=== PATIENT | male | born 1970 | race Caucasian/White ===

== ENCOUNTER 2016-03-07 14:52 | Emergency (ER) | payer SELFPAY ==
[~2016-03-07] VITALS: Ht 167.6 cm; Wt 112.0 kg
[2016-03-07 14:55] VITALS: BP 148/107; PULSE 79; RESP 16; TEMP 98.3; O2SAT 98
--- NOTE | 2016-03-07 15:23 | PD ---
HPI Chief Complaint: GI Complaint Time Seen by Provider: 15:08 Travel History International Travel<30 days: No Contact w/Intl Traveler<30days: No Traveled to known affect area: No History of Present Illness HPI 45 years old male complains of low abdominal pain with nausea vomiting diarrhea. Patient states that symptoms started 3 days ago. Patient states the pain is sharp pain localized to lower abdomen. Patient denies any pain radiation. Patient states that pain has been constant for the past 3 days. Patient states that he has intermittent fever or sweats chills. Patient also has been congested and wheezing recently. Patient denies any history of COPD or asthma. Patient has been using albuterol inhaler as needed. Patient is a nonsmoker. Patient has history of irritable bowel syndrome. Patient has taken Prilosec [id number] as needed. PFSH Past Medical History Cardiovascular Problems: Yes (HTN) Diabetes: Yes (METFORMIN) Social History Tobacco Use: No Allergies-Medications (Allergen,Severity, Reaction): Coded Allergies: No Known Allergies (Unverified , 03/07/16) Reported Meds & Prescriptions Reported Meds & Active Scripts Active Zofran Odt (Ondansetron Odt) 4 Mg Tab 4 Mg SL Q6HR PRN Bentyl (Dicyclomine HCl) 20 Mg Tab 20 Mg PO TID Protonix (Pantoprazole Sodium) 20 Mg Tab 20 Mg PO DAILY Levaquin (Levofloxacin) 750 Mg Tab 750 Mg PO DAILY Reported Clonidine (Clonidine HCl) 0.3 Mg Tab 0.3 Mg PO TID Losartan (Losartan Potassium) 100 Mg Tab 100 Mg PO DAILY Amlodipine (Amlodipine Besylate) 2.5 Mg Tab Unknown Dose PO DAILY Atenolol 100 Mg Tab 100 Mg PO BID Review of Systems General / Constitutional: No: Fever Eyes: No: Visual changes HENT: Positive: Congestion, No: Headaches Cardiovascular: No: Chest Pain or Discomfort Respiratory: Positive: Wheezing, No: Shortness of Breath Gastrointestinal: Positive: Nausea, Vomiting, Diarrhea, Abdominal Pain Genitourinary: No: Dysuria Musculoskeletal: No: Pain Skin: No Rash Neurologic: No: Weakness Psychiatric: No: Depression Endocrine: No: Polydipsia Hematologic/Lymphatic: No: Easy Bruising Physical Exam Narrative GENERAL: Well-nourished, well-developed patient. SKIN: Warm and dry. HEAD: Normocephalic. EYES: No scleral icterus. No injection or drainage. NECK: Supple, trachea midline. No JVD or lymphadenopathy. CARDIOVASCULAR: Regular rate and rhythm without murmurs, gallops, or rubs. RESPIRATORY: Breath sounds equal bilaterally. No accessory muscle use. GASTROINTESTINAL: Abdomen soft, nondistended. Patient has mild tenderness on palpation lower abdomen. No rebound tenderness. No mass. MUSCULOSKELETAL: No cyanosis, or edema. BACK: Nontender without obvious deformity. No CVA tenderness. Neurologic exam normal. Data Data Last Documented VS Vital Signs Date Time Temp Pulse Resp B/P Pulse Ox O2 Delivery O2 Flow Rate FiO2 03/07/16 17:47 76 16 157/75 98 Room Air 03/07/16 14:55 98.3 Orders Electrocardiogram (03/07/16 15:16) Complete Blood Count With Diff (03/07/16 15:16) Comprehensive Metabolic Panel (03/07/16 15:16) Prothrombin Time / Inr (Pt) (03/07/16 15:16) Act Partial Throm Time (Ptt) (03/07/16 15:16) Lipase (03/07/16 15:16) Urinalysis - C+S If Indicated (03/07/16 15:16) Chest, Single Ap (03/07/16 15:16) Iv Access Insert/Monitor (03/07/16 15:16) Ecg Monitoring (03/07/16 15:16) Oximetry (03/07/16 15:16) Sodium Chlor 0.9% 1000 Ml Inj (Ns 1000 M (03/07/16 15:30) Pantoprazole Inj (Protonix Inj) (03/07/16 15:30) Ondansetron Inj (Zofran Inj) (03/07/16 15:30) Ct Abd/Pel W Iv Contrast(Rout) (03/07/16 15:20) Iohexol 350 Inj (Omnipaque 350 Inj) (03/07/16 17:08) Ceftriaxone Inj (Rocephin Inj) (03/07/16 17:45) Labs Laboratory Tests Test 03/07/16 03/07/16 15:50 17:39 White Blood Count 5.4 TH/MM3 Red Blood Count 4.75 MIL/MM3 Hemoglobin 14.6 GM/DL Hematocrit 42.3 % Mean Corpuscular Volume 89.2 FL Mean Corpuscular Hemoglobin 30.6 PG Mean Corpuscular Hemoglobin 34.4 % Concent Red Cell Distribution Width 12.2 % Platelet Count 259 TH/MM3 Mean Platelet Volume 7.7 FL Neutrophils (%) (Auto) 57.1 % Lymphocytes (%) (Auto) 23.9 % Monocytes (%) (Auto) 14.0 % Eosinophils (%) (Auto) 4.0 % Basophils (%) (Auto) 1.0 % Neutrophils # (Auto) 3.0 TH/MM3 Lymphocytes # (Auto) 1.3 TH/MM3 Monocytes # (Auto) 0.8 TH/MM3 Eosinophils # (Auto) 0.2 TH/MM3 Basophils # (Auto) 0.1 TH/MM3 CBC Comment DIFF FINAL Differential Comment Prothrombin Time 10.2 SEC Prothromb Time International 0.9 RATIO Ratio Activated Partial 27.7 SEC Thromboplast Time Sodium Level 141 MEQ/L Potassium Level 3.8 MEQ/L Chloride Level 106 MEQ/L Carbon Dioxide Level 25.6 MEQ/L Anion Gap 9 MEQ/L Blood Urea Nitrogen 11 MG/DL Creatinine 1.20 MG/DL Estimat Glomerular Filtration 65 ML/MIN Rate Random Glucose 116 MG/DL Calcium Level 8.3 MG/DL Total Bilirubin 0.3 MG/DL Aspartate Amino Transf 41 U/L (AST/SGOT) Alanine Aminotransferase 66 U/L (ALT/SGPT) Alkaline Phosphatase 54 U/L Total Protein 7.7 GM/DL Albumin 3.8 GM/DL Lipase 233 U/L Urine Collection Type VOIDED Urine Color YELLOW Urine Turbidity CLEAR Urine pH 6.0 Urine Specific [place] 1.030 Urine Protein NEG mg/dL Urine Glucose (UA) NEG mg/dL Urine Ketones NEG mg/dL Urine Occult Blood SMALL Urine Nitrite NEG Urine Bilirubin NEG Urine Leukocyte Esterase NEG Urine RBC 0-3 /hpf Urine WBC 0-2 /hpf Microscopic Urinalysis Comment CULT NOT INDICATED Urine Collection Time 1739 MDM Medical Decision Making Medical Screen Exam Complete: Yes Emergency Medical Condition: Yes Interpretation(s) Last Impressions Chest X-Ray 03/07/16 1516 Signed Impressions: Service Date/Time: February 15:36 - CONCLUSION: Possible focal consolidation in the medial right upper lung zone/right suprahilar region. The appearance is nonspecific. If there are clinically signs of infection this could represent an infectious process. Consider followup PA and lateral views of the chest to confirm resolution. Justice Muro MD 1626 PM. CBC within normal limit. CMP within normal limit. Differential Diagnosis Differential diagnosis including gastroenteritis, gastritis, PUD, pancreatitis, cholecystitis, colitis, UTI, pyelonephritis, URI, bronchitis, pneumonia. Narrative Course 45 years old male complains of low abdominal pain with nausea vomiting diarrhea and congestion and wheezing. Rocephin 1 g IV given now. Diagnosis Primary Impression: Pneumonia Qualified Code: J18.9 - Pneumonia of both lungs due to infectious organism, unspecified part of lung Additional Impression: Gastroenteritis Patient Instructions: General Instructions Additional Instructions: Take medications as directed. Tylenol for fever. Follow-up with personal physician. Return if persistent problem or worse. Med/Other Pt SpecificInfo: Prescription(s) given Scripts Ondansetron Odt (Zofran Odt)4 Mg Tab4 Mg SL Q6HR PRN (Nausea/Vomiting) #10 TAB Prov:Hunter Parsons MD 03/07/16 Dicyclomine (Bentyl)20 Mg Tab20 Mg PO TID #30 TAB Ref 0 Prov:Hunter Parsons MD 03/07/16 Pantoprazole (Protonix)20 Mg Tab20 Mg PO DAILY #30 TAB Ref 0 Prov:Hunter Parsons MD 03/07/16 Levofloxacin (Levaquin)750 Mg Hbr138 Mg PO DAILY #10 TAB Ref 0 Prov:Hunter Parsons MD 03/07/16 Disposition: 01 DISCHARGE HOME Condition: Stable Hunter Parsons MD Mar 07, 2016 15:23
[2016-03-07 15:29] VITALS: RESP 18; O2SAT 98
[2016-03-07] MEDS ORDERED: ONDANSETRON HCL 4 MG/2 ML VIAL IV PUSH ONE (15:30)
[2016-03-07] MEDS ORDERED: SODIUM CHLOR 0.9% 1000 ML INJ 1,000 ML IV SCH (15:30)
[2016-03-07] MEDS ORDERED: PANTOPRAZOLE SODIUM 40 MG VIAL IV PUSH ONE (15:30)
[2016-03-07] MEDS ORDERED: ATEN100T PO (15:31)
[2016-03-07] MEDS ORDERED: LOSA100T PO (15:32)
[2016-03-07] MEDS ORDERED: AMLO2.5T PO (15:32)
[2016-03-07] MEDS ORDERED: CLON0.3T PO (15:33)
[2016-03-07 15:59] LABS: BASOPHIL # 0.1 TH/MM3 (0-0.2); EOSINOPHIL # 0.2 TH/MM3 (0-0.4); HEMATOCRIT 42.3 % (39.0-51.0); HEMO FLAGS DIFF FINAL; LYMPH % 23.9 % (9.0-44.0); LYMPHOCYTE # 1.3 TH/MM3 (1.0-4.8); MEAN CELL VOLUME 89.2 FL (80.0-100.0); MEAN CORPUSCULAR HEMOGLOBIN 30.6 PG (27.0-34.0); MEAN CORPUSCULAR HGB CONC 34.4 % (32.0-36.0); NEUT % 57.1 % (16.0-70.0); PLATELET COUNT 259 TH/MM3 (150-450); RED BLOOD COUNT 4.75 MIL/MM3 (4.50-5.90); RED CELL DISTRIBUTION WIDTH 12.2 % (11.6-17.2); WHITE BLOOD COUNT 5.4 TH/MM3 (4.0-11.0)
[2016-03-07 16:07] LABS: CHLORIDE 106 MEQ/L (98-107); POTASSIUM 3.8 MEQ/L (3.5-5.1); SODIUM (NA) 141 MEQ/L (136-145)
--- NOTE | 2016-03-07 16:09 | RADHPO ---
EXAM DATE/TIME: 03/07/2016 15:36 [facility] COMPARISON: No previous studies available for comparison. INDICATIONS : Patient states shortness of breath. MEDICAL HISTORY : Hypertension. Diabetes mellitus type II. Smoker SURGICAL HISTORY : None. ENCOUNTER: Initial ACUITY: 2 days PAIN SCORE: 1/10 LOCATION: Bilateral chest FINDINGS: Portable AP view of the chest demonstrates a normal-sized cardiac silhouette. Lungs are underinflated . No effusion or pneumothorax is visualized. There is questionable focal airspace opacity in the righ t suprahilar region in the medial right upper lung zone. Bones and soft tissues demonstrate no acute finding. CONCLUSION: Possible focal consolidation in the medial right upper lung zone/right suprahilar region. The appeara nce is nonspecific. If there are clinically signs of infection this could represent an infectious pro cess. Consider followup PA and lateral views of the chest to confirm resolution. Justice Muro MD on March 07, 2016 at 16:02 Board Certified Radiologist. This report was verified electronically.
[2016-03-07 16:11] LABS: ANION GAP 9 MEQ/L (5-15); BICARBONATE 25.6 MEQ/L (21.0-32.0); BLOOD UREA NITROGEN 11 MG/DL (7-18)
[2016-03-07 16:12] LABS: APTT (PATIENT) 27.7 SEC (24.3-30.1); INTERNATIONAL NORMALIZED RATIO 0.9 RATIO; PROTHROMBIN TIME - PATIENT 10.2 SEC (9.8-11.6)
[2016-03-07 16:13] LABS: ALT (GPT) 66 U/L (12-78); AST (GOT) 41 U/L (15-37); GLOMERULAR FILTRATION RATE 65 ML/MIN (>89)
[2016-03-07 16:15] LABS: TOTAL BILIRUBIN ADULT 0.3 MG/DL (0.2-1.0)
[2016-03-07 16:16] LABS: ALKALINE PHOSPHATASE 54 U/L (45-117)
[2016-03-07 16:46] VITALS: BP 152/99; PULSE 78; RESP 16; O2SAT 97
[2016-03-07] MEDS ORDERED: IOHEXOL 350 MG/ML 10 ML VIAL (for RAD DIAG) IV ONE (17:08)
--- NOTE | 2016-03-07 17:28 | RADHPO ---
EXAM DATE/TIME: 03/07/2016 16:50 [facility] COMPARISON: No previous studies available for comparison. INDICATIONS : Lower abdominal pain. Nausea. Vomiting. Diarrhea. IV CONTRAST: 100 cc Omnipaque 350 (iohexol) IV ORAL CONTRAST: No oral contrast ingested. RADIATION DOSE: 21.66 CTDIvol (mGy) MEDICAL HISTORY : Hypertension. Diabetes mellitus type 2. SURGICAL HISTORY : None. ENCOUNTER: Initial ACUITY: 3 days PAIN SCALE: 5/10 LOCATION: Bilateral lower quadrant TECHNIQUE: Volumetric scanning of the abdomen and pelvis was performed. Using automated exposure control and adjustment of the mA and/or kV according to patient size, radiation dose was kept as low as reasonably achievable to obtain optimal diagnostic quality images. FINDINGS: LOWER LUNGS: There is left lower lobe airspace consolidation present and to a lesser extent withi n the right lower lobe. This may represent pneumonia. LIVER: Homogeneous density without lesion. Diffuse low-attenuation consistent with hepatic steat osis. There is no dilation of the biliary tree. No calcified gallstones. SPLEEN: Normal size without lesion. PANCREAS: Within normal limits. KIDNEYS: Normal in size and shape. There is no mass, stone or hydronephrosis. ADRENAL GLANDS: Within normal limits. VASCULAR: There is no aortic aneurysm. BOWEL/MESENTERY: The stomach, small bowel, and colon demonstrate no acute abnormality. There is no free intraperitoneal air or fluid. ABDOMINAL WALL: Within normal limits. RETROPERITONEUM: There is no lymphadenopathy. BLADDER: No wall thickening or mass. REPRODUCTIVE: Within normal limits. INGUINAL: There is no lymphadenopathy or hernia. MUSCULOSKELETAL: Within normal limits for patient age. CONCLUSION: Bilateral perihilar airspace consolidation. This likely represents pneumonia. Hepatic steatosis. Linh Thorpe MD on March 07, 2016 at 17:25 Board Certified Radiologist. This report was verified electronically.
[2016-03-07] MEDS ORDERED: LEVA750T PO (17:35)
[2016-03-07] MEDS ORDERED: ZOFR4TAB3 SL (17:35)
[2016-03-07] MEDS ORDERED: PANT20 PO (17:35)
[2016-03-07] MEDS ORDERED: BENT20TA PO (17:35)
[2016-03-07] MEDS ORDERED: cefTRIAXone INJ 1,000 MG in SODIUM CHLORIDE 0.9% INJ 100 ML IV ONE (17:45)
[2016-03-07 17:47] VITALS: BP 157/75; PULSE 76; RESP 16; O2SAT 98
[2016-03-07 17:50] LABS: BLOOD, URINE SMALL (NEG); GLUCOSE,URINE NEG (NEG); KETONE, URINE NEG (NEG); NITRITE,URINE NEG (NEG)
[2016-03-07 18:15] LABS: METHOD OF COLLECTION VOIDED; URINE COLOR YELLOW (YELLW/STRAW)
[2016-03-07 18:22] LABS: COMMENT (UR) CULT NOT INDICATED; CULTURE IF INDICATED CULT NOT INDICATED; RBC, URINE 0-3 /hpf (0-3); WBC, URINE 0-2 /hpf (0-5)
[2016-03-07 19:42] VITALS: BP 165/100
--- NOTE | 2016-03-08 16:39 | EKG ---
Date Performed: 03/07/2016 Time Performed: 15:25:56 PTAGE: 45 years EKG: Sinus rhythm rSr'(V1) - probable normal variant Normal ECG NO PREVIOUS TRACING DOCTOR: John Kimbrough Interpretating Date/Time 03/08/2016 16:38:16
== END 2016-03-07 19:44 | disposition home or self-care (01) ==
LOC: PHED 14:52
DX: J18.9 Pneumonia, unspecified organism (principal); I10 Essential (primary) hypertension; E11.9 Type 2 diabetes mellitus without complications; Z79.4 Long term (current) use of insulin
CPT/HCPCS: 71010; 74177; 80053; 81001; 83690; 85025; 85610; 85730; 93005; 96361; 96365; 96375; 99285; C9113; J0696; J2405; J7030; Q9967

== ENCOUNTER 2016-08-06 12:04 | Inpatient (IN) | payer OTHER ==
[~2016-08-06] VITALS: Ht 167.6 cm; Wt 103.0 kg
[2016-08-06] VITALS (10 sets, daily range): BP systolic 132–192; BP diastolic 3–121; PULSE 3–72; RESP 15–20; TEMP 97.4–98.6; O2SAT 96–99
[~2016-08-06 12:04] MED LIST: AMLO2.5T PO; ATEN100T PO; BENT20TA PO; CLON0.3T PO; LEVA750T PO; LOSA100T PO; PANT20 PO; ZOFR4TAB3 SL
[2016-08-06] MEDS ORDERED: PRIL20TA2 PO (12:28)
[2016-08-06] MEDS ORDERED: NITROGLYCERIN 0.4 MG SL 25 TABS/BTL SL ONE (12:30)
[2016-08-06] MEDS ORDERED: SODIUM CHLORIDE 0.9% FLUSH 10 ML FLUSH IVF PRN (12:30)
[2016-08-06 13:02] LABS: AUTOMATED NEUTROPHIL # 4.7 TH/MM3 (1.8-7.7); BASOPHIL # 0.2 TH/MM3 (0-0.2); BASOPHIL % 1.9 % (0.0-2.0); EOSINOPHIL # 0.2 TH/MM3 (0-0.4); EOSINOPHIL % 2.2 % (0.0-4.0); HEMATOCRIT 42.2 % (39.0-51.0); HEMO FLAGS DIFF FINAL; LYMPH % 30.6 % (9.0-44.0); LYMPHOCYTE # 2.5 TH/MM3 (1.0-4.8); MEAN CELL VOLUME 87.1 FL (80.0-100.0); MEAN CORPUSCULAR HGB CONC 34.5 % (32.0-36.0); NEUT % 58.3 % (16.0-70.0); PLATELET COUNT 268 TH/MM3 (150-450); RED BLOOD COUNT 4.85 MIL/MM3 (4.50-5.90); RED CELL DISTRIBUTION WIDTH 12.3 % (11.6-17.2); WHITE BLOOD COUNT 8.2 TH/MM3 (4.0-11.0)
--- NOTE | 2016-08-06 13:10 | RADRPT ---
EXAM DATE/TIME: 08/06/2016 12:33 [facility] COMPARISON: No previous studies available for comparison. INDICATIONS : High blood pressure. MEDICAL HISTORY : Hypertension. Diabetes mellitus type II. Smoker. SURGICAL HISTORY : None. ENCOUNTER: Initial ACUITY: 1 day PAIN SCORE: 0/10 LOCATION: chest FINDINGS: PA and lateral views of the chest demonstrate the lungs to be symmetrically aerated without evidence of mass, infiltrate or effusion. The cardiomediastinal contours are unremarkable. Osseous structure s are intact. CONCLUSION: No acute disease. Magdaleno Nolasco MD on August 06, 2016 at 13:03 Board Certified Radiologist. This report was verified electronically.
[2016-08-06 13:14] LABS: CHLORIDE 106 MEQ/L (98-107); POTASSIUM 3.9 MEQ/L (3.5-5.1); SODIUM (NA) 142 MEQ/L (136-145)
[2016-08-06 13:18] LABS: ANION GAP 6 MEQ/L (5-15); BICARBONATE 29.9 MEQ/L (21.0-32.0); BLOOD UREA NITROGEN 13 MG/DL (7-18)
[2016-08-06 13:19] LABS: APTT (PATIENT) 21.2 SEC (24.3-30.1); INTERNATIONAL NORMALIZED RATIO 0.9 RATIO; PROTHROMBIN TIME - PATIENT 9.9 SEC (9.8-11.6)
[2016-08-06 13:21] LABS: ALT (GPT) 38 U/L (12-78); AST (GOT) 22 U/L (15-37); GLOMERULAR FILTRATION RATE 72 ML/MIN (>89)
[2016-08-06 13:23] LABS: TOTAL BILIRUBIN ADULT 0.3 MG/DL (0.2-1.0)
[2016-08-06 13:24] LABS: ALKALINE PHOSPHATASE 55 U/L (45-117)
[2016-08-06] MEDS ORDERED: ASPIRIN 81 MG CHEW TAB CHEW ONE (14:15)
--- NOTE | 2016-08-06 14:25 | PD ---
HPI Chief Complaint: Hypertension Time Seen by Provider: 12:21 Travel History International Travel<30 days: No Contact w/Intl Traveler<30days: No Traveled to known affect area: No History of Present Illness HPI Patient is a 45-year-old male comes in complaining of high blood pressure and chest tightness. He says that he has noticed his blood pressure has been elevated, especially in the afternoon for the past few days. He says the bottom number is been in the 120s. He does report he was out of his amlodipine , but he picked it up yesterday and has been taking it since then. He says that yesterday he had some chest tightness, and today he had pain in his chest again. He says the pain goes across his chest. She also had occasional headaches and blurred vision. The blurred vision has been going on for months, and is mostly related to trying to read. He has gotten reading glasses, and this is resolved the symptoms. He denies any shortness of breath. He denies any fever or chills. [facility] Past Medical History Cardiovascular Problems: Yes (HTN) Diabetes: Yes (METFORMIN) Patient Takes Glucophage: No Diminished Hearing: No Influenza Vaccination: Yes Social History Alcohol Use: No Tobacco Use: No Substance Use: Yes ([facility] occas) Allergies-Medications (Allergen,Severity, Reaction): Coded Allergies: No Known Allergies (Unverified , 08/06/16) Reported Meds & Prescriptions Reported Meds & Active Scripts Active Protonix (Pantoprazole Sodium) 20 Mg Tab 20 Mg PO DAILY Reported Prilosec (Omeprazole Magnesium) 20 Mg Tab 1 Tab PO DAILY Clonidine (Clonidine HCl) 0.3 Mg Tab 0.3 Mg PO TID Losartan (Losartan Potassium) 100 Mg Tab 100 Mg PO DAILY Amlodipine (Amlodipine Besylate) 2.5 Mg Tab Unknown Dose PO DAILY Atenolol 100 Mg Tab 100 Mg PO BID Review of Systems Except as stated in HPI: all other systems reviewed are Neg General / Constitutional: No: Fever, Chills HENT: No: Headaches, Lightheadedness Cardiovascular: Positive: Chest Pain or Discomfort Respiratory: No: Cough, Shortness of Breath Gastrointestinal: No: Nausea, Vomiting Genitourinary: No: Dysuria Musculoskeletal: No: Myalgias Skin: No Rash, No Change in Pigmentation Neurologic: No: Weakness, Dizziness Physical Exam Narrative GENERAL: Awake and alert, in no acute distress. SKIN: Focused skin assessment warm/dry. HEAD: Atraumatic. Normocephalic. EYES: Pupils equal and round. No scleral icterus. ENT: Mucous membranes pink and moist. NECK: Trachea midline. No JVD. CARDIOVASCULAR: Regular rate and rhythm. No murmur appreciated. RESPIRATORY: No accessory muscle use. Clear to auscultation. Breath sounds equal bilaterally. MUSCULOSKELETAL: No obvious deformities. No clubbing. No cyanosis. No edema. NEUROLOGICAL: Awake and alert. No obvious cranial nerve deficits. Motor grossly within normal limits. Normal speech. PSYCHIATRIC: Appropriate mood and affect; insight and judgment normal. Data Data Last Documented VS Vital Signs Date Time Temp Pulse Resp B/P Pulse Ox O2 Delivery O2 Flow Rate FiO2 08/06/16 14:01 72 18 149/85 99 Room Air 08/06/16 12:11 98.6 Orders Electrocardiogram (08/06/16 12:28) Complete Blood Count With Diff (08/06/16 12:28) Comprehensive Metabolic Panel (08/06/16 12:28) Prothrombin Time / Inr (Pt) (08/06/16 12:28) Act Partial Throm Time (Ptt) (08/06/16 12:28) Troponin I (08/06/16 12:28) Ecg Monitoring (08/06/16 12:28) Iv Access Insert/Monitor (08/06/16 12:28) Oximetry (08/06/16 12:28) Sodium Chloride 0.9% Flush (Ns Flush) (08/06/16 12:30) Nitroglycerin Sl (Nitrostat Sl) (08/06/16 12:30) Chest, Pa & Lat (08/06/16 12:28) Aspirin Chew (Aspirin Chew) (08/06/16 14:15) Labs Laboratory Tests Test 08/06/16 12:55 White Blood Count 8.2 TH/MM3 Red Blood Count 4.85 MIL/MM3 Hemoglobin 14.6 GM/DL Hematocrit 42.2 % Mean Corpuscular Volume 87.1 FL Mean Corpuscular Hemoglobin 30.0 PG Mean Corpuscular Hemoglobin 34.5 % Concent Red Cell Distribution Width 12.3 % Platelet Count 268 TH/MM3 Mean Platelet Volume 8.0 FL Neutrophils (%) (Auto) 58.3 % Lymphocytes (%) (Auto) 30.6 % Monocytes (%) (Auto) 7.0 % Eosinophils (%) (Auto) 2.2 % Basophils (%) (Auto) 1.9 % Neutrophils # (Auto) 4.7 TH/MM3 Lymphocytes # (Auto) 2.5 TH/MM3 Monocytes # (Auto) 0.6 TH/MM3 Eosinophils # (Auto) 0.2 TH/MM3 Basophils # (Auto) 0.2 TH/MM3 CBC Comment DIFF FINAL Differential Comment Prothrombin Time 9.9 SEC Prothromb Time International 0.9 RATIO Ratio Activated Partial 21.2 SEC Thromboplast Time Sodium Level 142 MEQ/L Potassium Level 3.9 MEQ/L Chloride Level 106 MEQ/L Carbon Dioxide Level 29.9 MEQ/L Anion Gap 6 MEQ/L Blood Urea Nitrogen 13 MG/DL Creatinine 1.10 MG/DL Estimat Glomerular Filtration 72 ML/MIN Rate Random Glucose 92 MG/DL Calcium Level 8.6 MG/DL Total Bilirubin 0.3 MG/DL Aspartate Amino Transf 22 U/L (AST/SGOT) Alanine Aminotransferase 38 U/L (ALT/SGPT) Alkaline Phosphatase 55 U/L Troponin I LESS THAN 0.02 NG/ML Total Protein 7.6 GM/DL Albumin 4.0 GM/DL MDM Medical Decision Making Medical Screen Exam Complete: Yes Emergency Medical Condition: Yes Medical Record Reviewed: Yes Interpretation(s) ECG shows normal sinus rhythm at 65, incomplete right bundle-branch block, no ST elevation or depression. Differential Diagnosis ACS versus NSTEMI versus STEMI versus hypertensive urgency versus hypertensive emergency Narrative Course Patient is a 45-year-old male comes in complaining of high blood pressure and chest pain. Exam shows no acute abnormalities. Blood pressure is currently 156 /98. IV established, labs sent. Patient connected to the monitoring and evaluation advisor. Labs show no acute abnormalities, first troponin is negative. Patient was given 1 nitroglycerin with some improvement of his blood pressure, but it caused a headache. He is currently pain-free in his chest. He is given aspirin. Will be placed in chest pain center for further management. Diagnosis Primary Impression: Chest pain Qualified Code: R07.9 - Chest pain, unspecified type Admitting Information Admitting Physician Requests: Emy Adam MD Aug 06, 2016 14:25
[2016-08-06] MEDS ORDERED: SODIUM CHLORIDE 0.9% FLUSH 10 ML FLUSH IV FLUSH PRN (14:30)
[2016-08-06] MEDS ORDERED: MORPHINE SULFATE 4 MG/ML INJ IV PRN (14:30)
[2016-08-06] MEDS ORDERED: ONDANSETRON HCL 4 MG/2 ML VIAL IV PRN (14:30)
[2016-08-06] MEDS ORDERED: NITROGLYCERIN 0.4 MG SL 25 TABS/BTL SL PRN (14:30)
--- NOTE | 2016-08-06 16:25 | HHI.HP ---
[facility] Service [facility] Non-Staff Admission Diagnosis Chest Pain Diagnoses: (1) Chest pain Diagnosis: Principal (2) Dyspnea Diagnosis: Principal (3) HTN (hypertension) Diagnosis: Principal Chief Complaint: elevated BP, chest pain, shortness of breath Travel History International Travel<30 Days: No Contact w/Intl Traveler <30 Da: No Traveled to Known Affected Are: No History of Present Illness Written by Jossy Jain PA-C acting as scribe for Dr. Fagan on 08/06/16 at ~1615. 45-year-old male with history of diabetes, hypertension, anxiety, h/o tobacco use presents with complaint of elevated blood pressure and chest pain. Patient's and mother at bedside. His also states he has been short of breath. Patient states he is four different blood pressure medications and he ran out of his amlodipine 7-8 days ago. He states he was trying to take cinnamon supplement instead to try to get off taking so many medications. 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 He states his diastolic blood pressure has been elevated over 100. He states his blood pressure was 178/122 this morning and he took his morning meds and he went to work and rechecked his blood pressure and his diastolic blood pressure was still above 100 so he decided to come to the ED. He states he felt a "stitch" of pain in the left breast which has been constant over the past 48 hours but it does not really concern him. His states he has also been short of breath for the past 2 weeks on exertion and at rest. The patient does smoke marijuana for anxiety relief. Denies any cough. He also states he has IBS and has had 4-6 bowel movements per day. She is primary-care physician is Dr. Kt Islas, but he is self-pay. Review of Systems Except as stated in HPI: all other systems reviewed are Neg Past Family Social History Past Medical History Hypertension Diabetes Anxiety Past Surgical History Carpal tunnel surgery Reported Medications Medications verified with patient's . Prilosec (Omeprazole Magnesium) 20 Mg Tab 1 Tab PO DAILY Clonidine 0.3 mg po tid Losartan (Losartan Potassium) 100 Mg Tab 100 Mg PO DAILY Amlodipine 5 mg po daily Atenolol 50 Mg PO BID Metformin 1000 mg po bid Allergies: Coded Allergies: No Known Allergies (Unverified , 08/06/16) Family History Father: CAD; stents; quadruple bypass in his 60s; DM Mother: HTN Social History . Drinks a bottle of whiskey per month. Quit smoking cigarettes 10 years ago. Prior to this smoked one pack per day for 20 years. Uses marijuana. Physical Exam Vital Signs Vital Signs Date Time Temp Pulse Resp B/P Pulse Ox O2 Delivery O2 Flow Rate FiO2 08/06/16 15:15 68 18 162/100 99 08/06/16 14:01 72 18 149/85 99 Room Air 08/06/16 13:53 77 08/06/16 13:08 18 08/06/16 13:04 68 18 132/76 96 Room Air 08/06/16 12:40 66 15 156/98 98 Room Air 08/06/16 12:11 98.6 68 16 157/108 96 Physical Exam GENERAL: This is an obese, well-developed patient, in no apparent distress. SKIN: No rashes, ecchymoses or lesions. Warm and dry. HEAD: Atraumatic. Normocephalic. EYES: No scleral icterus. No injection or drainage. CHEST: Very mild reproducible tenderness under the left breast CARDIOVASCULAR: Regular rate and rhythm without murmurs, gallops, or rubs. RESPIRATORY: Diffuse decreased air entry and expiratory wheezing. GASTROINTESTINAL: Abdomen soft, non-tender, nondistended. No guarding. MUSCULOSKELETAL: No lower extremity edema bilaterally. NEUROLOGICAL: Awake and alert. Motor grossly within normal limits. Normal speech. PSYCHIATRIC: Normal mood and affect. Laboratory Laboratory Tests Test 08/06/16 12:55 White Blood Count 8.2 Red Blood Count 4.85 Hemoglobin 14.6 Hematocrit 42.2 Mean Corpuscular Volume 87.1 Mean Corpuscular Hemoglobin 30.0 Mean Corpuscular Hemoglobin 34.5 Concent Red Cell Distribution Width 12.3 Platelet Count 268 Mean Platelet Volume 8.0 Neutrophils (%) (Auto) 58.3 Lymphocytes (%) (Auto) 30.6 Monocytes (%) (Auto) 7.0 Eosinophils (%) (Auto) 2.2 Basophils (%) (Auto) 1.9 Neutrophils # (Auto) 4.7 Lymphocytes # (Auto) 2.5 Monocytes # (Auto) 0.6 Eosinophils # (Auto) 0.2 Basophils # (Auto) 0.2 CBC Comment DIFF FINAL Differential Comment Prothrombin Time 9.9 Prothromb Time International 0.9 Ratio Activated Partial 21.2 Thromboplast Time Sodium Level 142 Potassium Level 3.9 Chloride Level 106 Carbon Dioxide Level 29.9 Anion Gap 6 Blood Urea Nitrogen 13 Creatinine 1.10 Estimat Glomerular Filtration 72 Rate Random Glucose 92 Calcium Level 8.6 Total Bilirubin 0.3 Aspartate Amino Transf 22 (AST/SGOT) Alanine Aminotransferase 38 (ALT/SGPT) Alkaline Phosphatase 55 Troponin I LESS THAN 0.02 Total Protein 7.6 Albumin 4.0 Result Diagram: 08/06/16 1255 08/06/16 1255 Imaging Last Impressions Chest X-Ray 08/06/16 1228 Signed Impressions: Service Date/Time: Saturday, August 06, 2016 12:33 - CONCLUSION: No acute disease. Magdaleno Nolasco MD Assessment and Plan Assessment and Plan 45-year-old male with: Hypertension, uncontrolled: Patient is on clonidine, valsartan, amlodipine, and atenolol at home. He had not been taking his 5mg daily amlodipine for the past 7-8 days, restarted it recently. His diastolic blood pressure has been elevated at home. BP 157/108 on arrival. -Discontinue scheduled clonidine. Will keep clonidine as needed 0.1 mg q6h prn BP >/= 160/90. -Discontinue amlodipine -Continue losartan. -Hold atenolol for now in light of stress test. Chest pain: Mild but constant over the past 48 hours. Could be attributed to elevated blood pressure. EKGs 2 with normal sinus rhythm; incomplete right bundle-branch block. There appears to be some T-wave flipping, inversion on the second EKG in V5 and V6. First Troponin less than 0.02. Patient received 324 mg aspirin this afternoon. -Serial EKGs and enzymes -Continue daily aspirin -Nitroglycerin/[place]/morphine prn chest pain -Telemetry -Patient will undergo nuclear stress test in the morning provided he has no significant wheezing. Nothing by mouth after midnight. Dyspnea: Patient's states he has been short of breath for the past 2 weeks at rest and on exertion. The patient does have wheezing on exam. He does smoke marijuana and has a history of tobacco use although quit 10 years ago. Chest x-ray without acute disease. -PFTs -Echo -Solu-Medrol 125 mg IV now; then start on by mouth prednisone Diabetes: Blood glucose level good at 92. -Hold home metformin -Bedside Accu-Cheks and low dose sliding scale insulin as needed. Do not cover if nothing by mouth and BGL less than 200. GI prophylaxis: Continue home Protonix. DVT prevention: SCDs. This note was transcribed by rani Jain. I, Dr. Terry Guardado personally performed the history, physical exam, and medical decision making; and confirmed the accuracy of the information in the transcribed note. Authenticated by Dr. Terry Guardado on 08/06/16 at 18:37. Discussed Condition With ED physician, patient Problem Qualifiers (1) Chest pain: Qualified Code: R07.9 - Chest pain, unspecified type (2) HTN (hypertension): Qualified Code: I10 - Essential hypertension Jossy Jain Aug 06, 2016 16:25 Terry Oreilly MD Aug 06, 2016 18:37
[2016-08-06] MEDS ORDERED: methylPREDNISolone SOD SUCC 125 MG/2 ML VIAL IV PUSH ONE (16:30)
[2016-08-06] MEDS: PANTOPRAZOLE SOD 20 MG DELAYED RELEASE TAB PO SCH (16:48)
[2016-08-06] MEDS: LOSARTAN 50 MG TAB PO SCH (16:48)
[2016-08-06 16:59] LABS: CREATINE KINASE 134 U/L (39-308)
[2016-08-06] MEDS ORDERED: ALPR.5 PO (16:59)
[2016-08-06] MEDS ORDERED: GLUCAGON 1 MG/ML VIAL OTHER PRN (17:00)
[2016-08-06] MEDS ORDERED: DEXTROSE 50% IN WATER 50 ML VIAL(D50) IV PRN (17:00)
[2016-08-06] MEDS ORDERED: METF500T PO (17:01)
[2016-08-06 17:12] LABS: CKMB LESS THAN 0.5 NG/ML (0.5-3.6)
[2016-08-06 20:06] LABS: CREATINE KINASE 128 U/L (39-308)
[2016-08-06] MEDS: predniSONE 20 MG TAB PO SCH (20:12)
[2016-08-06] MEDS: SODIUM CHLORIDE 0.9% FLUSH 10 ML FLUSH IV FLUSH SCH (20:12)
[2016-08-06 20:18] LABS: CKMB 0.6 NG/ML (0.5-3.6)
[2016-08-06] MEDS: INSULIN ASPART SUPPLEMENTAL SCALE SQ SCH (20:23)
[2016-08-06] MEDS ORDERED: ATENOLOL 50 MG TAB PO SCH (21:00)
[2016-08-06] MEDS: cloNIDine HCL 0.1 MG TAB PO PRN (23:46)
[2016-08-07] VITALS (10 sets, daily range): BP systolic 134–198; BP diastolic 80–117; PULSE 61–73; RESP 17–20; TEMP 97.6–98.2; O2SAT 95–99
[2016-08-07] MEDS ORDERED: ALPRAZolam 0.5 MG TAB PO ONE
[2016-08-07] MEDS: ACETAMINOPHEN 500 MG CPLT PO PRN ×3 (06:06→21:53)
[2016-08-07] MEDS: cloNIDine HCL 0.1 MG TAB PO PRN ×2 (06:06→21:01)
[2016-08-07] MEDS: INSULIN ASPART SUPPLEMENTAL SCALE SQ SCH ×3 (07:00→16:00)
[2016-08-07] MEDS ORDERED: REGADENOSON INJ 0.4 MG/5 ML SYR IV ONE (09:44)
[2016-08-07] MEDS ORDERED: AMINOPHYLLINE INJ 250 MG/10 ML VIAL IV ONE (10:35)
--- NOTE | 2016-08-07 11:38 | RADRPT ---
EXAM DATE/TIME: 08/07/2016 09:46 [place] COMPARISON: No previous studies available for comparison. INDICATIONS : Chest pain felt across the chest. Abnormal EKG. DOSE: 35 mCi Tc99m Myoview at stress. 11 mCi Tc99m Myoview at rest. 0.4 mg Lexiscan STRESS SYMPTOMS: Dyspnea, diaphoresis, nausea, facial flush, headache and abdominal pain. MEDICATIONS: 1.) 100 mg Aminophylline IV EJECTION FRACTION: 61% MEDICAL HISTORY : Diabetes mellitus type 2. Hypertension. SURGICAL HISTORY : None. ENCOUNTER: Initial ACUITY: 2 days PAIN SCALE: 5/10 LOCATION: chest TECHNIQUE: The patient underwent pharmacologic stress with infusion of prescribed dose. Continuous ECG tracing was monitored during stress. Gated SPECT imaging was performed after stress and conventional SPECT i maging was performed at rest. The examination was performed on a SPECT/CT scanner, both attenuation and non-corrected datasets were reviewed. FINDINGS: DISTRIBUTION: The maximum perfused segment at stress is in the lateral wall. PERFUSION STUDY: There is a small region of reversible decreased perfusion in the anterolateral wall. GATED STUDY: There is intact wall motion and thickening without hypokinetic or dyskinetic segments. CONCLUSION: 1. Small region of reversible perfusion defect in the anterolateral wall. 2. No focal wall motion abnormality with EF of 61%. RISK CATEGORY: 1-Low risk (<1% annual mortality rate) Олег Dowling MD on August 07, 2016 at 11:29 Board Certified Radiologist. This report was verified electronically.
[2016-08-07] MEDS: predniSONE 20 MG TAB PO SCH (12:20)
[2016-08-07] MEDS: PANTOPRAZOLE SOD 20 MG DELAYED RELEASE TAB PO SCH (12:20)
[2016-08-07] MEDS: ASPIRIN 325 MG TAB PO SCH (12:20)
[2016-08-07] MEDS: LOSARTAN 50 MG TAB PO SCH (12:21)
[2016-08-07] MEDS: SODIUM CHLORIDE 0.9% FLUSH 10 ML FLUSH IV FLUSH SCH ×2 (12:22→21:54)
--- NOTE | 2016-08-07 12:55 | HHI.PR ---
Subjective Remarks As per patient's Fiance BP very elevated last night Bp better this am. patient states breathing is much improved denies cp sp nuclear stress test Objective Vitals Vital Signs Date Time Temp Pulse Resp B/P Pulse Ox O2 Delivery O2 Flow Rate FiO2 08/07/16 08:00 98.0 65 17 149/90 96 08/07/16 00:15 170/100 08/07/16 00:00 97.6 73 18 198/117 97 08/06/16 23:00 65 08/06/16 21:30 140/80 08/06/16 20:00 97.4 68 20 186/121 96 192/118 08/06/16 19:00 60 08/06/16 16:00 97.4 58 17 165/104 97 08/06/16 15:15 68 18 162/100 99 08/06/16 14:01 72 18 149/85 99 Room Air 08/06/16 13:53 77 08/06/16 13:08 18 08/06/16 13:04 68 18 132/76 96 Room Air I/O 08/06/16 08/06/16 08/06/16 08/07/16 08/07/16 08/07/16 07:00 15:00 23:00 07:00 15:00 23:00 Intake Total 1120 ml 506 ml Balance 1120 ml 506 ml Intake Oral 1120 ml 0 ml IV Total 506 ml # Voids 3 1 # Bowel Movements 0 0 Result Diagram: 08/06/16 1255 08/06/16 1255 Imaging Last Impressions Myocardial Perfusion Scan Nuc Med 08/07/16 0821 Signed Impressions: Service Date/Time: Sunday, August 07, 2016 09:46 - CONCLUSION: 1. Small region of reversible perfusion defect in the anterolateral wall. 2. No focal wall motion abnormality with EF of 61%%. RISK CATEGORY: 1-Low risk (<1%% annual mortality rate) Олег Dowling MD Chest X-Ray 08/06/16 1228 Signed Impressions: Service Date/Time: Saturday, August 06, 2016 12:33 - CONCLUSION: No acute disease. Magdaleno Nolasco MD Objective Remarks GENERAL: This is an obese, well-developed patient, in no apparent distress. SKIN: No rashes, ecchymoses or lesions. Warm and dry. HEAD: Atraumatic. Normocephalic. EYES: No scleral icterus. No injection or drainage. CHEST: Very mild reproducible tenderness under the left breast CARDIOVASCULAR: Regular rate and rhythm without murmurs, gallops, or rubs. RESPIRATORY: Diffuse bilateral expiratory wheezing, no rhonchi, crackles auscultated. GASTROINTESTINAL: Abdomen soft, non-tender, nondistended. No guarding. MUSCULOSKELETAL: No lower extremity edema bilaterally. NEUROLOGICAL: Awake and alert. Motor grossly within normal limits. Normal speech. PSYCHIATRIC: Anxious. Procedures Status post nuclear stress testing. Medications and IVs Current Medications Medications (Trade) Dose Ordered Sig/Jamel Route Start Time Stop Time Status Last Admin (NS Flush) 2 ml UNSCH PRN IVF 08/06/16 12:30 08/06/16 12:57 (NS Flush) 2 ml UNSCH PRN IV FLUSH 08/06/16 14:30 (NS Flush) 2 ml BID IV FLUSH 08/06/16 21:00 08/07/16 12:22 (Tylenol) 500 mg Q4H PRN PO 08/06/16 14:30 08/07/16 12:29 ([place] 7.5-325 Mg) 1 tab Q4H PRN PO 08/06/16 14:30 (Morphine Inj) 2 mg Q4H PRN IV 08/06/16 14:30 (Zofran Inj) 4 mg Q6H PRN IV 08/06/16 14:30 (Nitrostat Sl) 0.4 mg Q5M PRN SL 08/06/16 14:30 (Aspirin) 325 mg DAILY PO 08/07/16 09:00 08/07/16 12:20 ([place]ap[place]) 0.1 mg Q6H PRN PO 08/06/16 14:45 08/07/16 06:06 (Tenormin) 100 mg BID PO 08/06/16 21:00 (Cozaar) 100 mg DAILY PO 08/06/16 16:30 08/07/16 12:21 (Protonix) 20 mg DAILY PO 08/06/16 16:30 08/07/16 12:20 (Deltasone) 20 mg BID PO 08/06/16 21:00 08/07/16 12:20 (D50w (Vial) Inj) 50 ml UNSCH PRN IV 08/06/16 17:00 (Glucagon Inj) 1 mg UNSCH PRN OTHER 08/06/16 17:00 (Xanax) 0.5 mg Q8H PRN PO 08/07/16 15:00 Urinary Catheter: No Vascular Central Line Catheter: No A/P Problem List: (1) Chest pain ICD Code: R07.9 Status: Acute Plan: Patient was placed under observation in the medical floor Cardiac enzymes were monitored and negative 3 Serial EKG is obtained. EKG on admission and reviewed by me showed sinus rhythm with a ventricular rate of 65 bpm and incomplete right bundle branch block. Nonspecific T-wave abnormality. Repeated EKGs did not show any change. (2) Dyspnea ICD Code: R06.00 Status: Acute Plan: Likely secondary to COPD exacerbation. The patient is a former cigarette smoker and current marijuana smoker. The patient has prior x-ray wheezing on exam. Much improved after IV Zometa 125 mg once, currently on prednisone, however I will place on IV Solu-Medrol given that patient still has significant wheezing. (3) HTN (hypertension) ICD Code: I10 Status: Acute Plan: Blood pressure uncontrolled last night. Atenolol held since patient was going to undergo a stress testing. 08/07 Resume Atenolol and continue home antihypertensive medication Losartan. (4) Marijuana abuse ICD Code: F12.10 Status: Acute Plan: Patient smokes marijuana regularly. Advised against the health risks of doing so. Assessment and Plan GI prophylaxis: Will add a PPI. DVT prophylaxis: SCDs, will place on heparin subcutaneously after cath. Problem Qualifiers (1) Chest pain: Qualified Code: R07.9 - Chest pain, unspecified type (2) HTN (hypertension): Qualified Code: I10 - Essential hypertension Terry Oreilly MD Aug 07, 2016 12:55
[2016-08-07] MEDS: ATENOLOL 50 MG TAB PO SCH ×2 (14:54→21:54)
[2016-08-07] MEDS ORDERED: diphenhydrAMINE HCL 50 MG CAP PO SCH (15:45)
[2016-08-07] MEDS ORDERED: NS 1000P @30 MLS/HR (KVO) IV SCH (16:00)
[2016-08-07] MEDS ORDERED: hydrALAZINE HCL 20 MG/ML VIAL IV PUSH ONE (16:15)
--- NOTE | 2016-08-07 16:19 | TR ---
Date Performed: 08/07/2016 Time Performed: 10:17:55 DOCTOR: Ye Bravo DRUG LIST: CLINICAL HISTORY: REASON FOR TEST: Chest pain REASON FOR ENDING: OBSERVATION: CONCLUSION: Lexiscan stress test was performed under standard four minute protocol. [place] e was injected one minute prior to ending the test. No electrocardiographic abormalities were present to suggest ischemia. Nuclear imaging and interpretation are pending. COMMENTS:
[2016-08-07] MEDS ORDERED: IOHEXOL 350 MG/ML 100 ML BTL (for Cath Lab) OTHER ONE (18:09)
[2016-08-07 18:15] LABS: HDL CHOLESTEROL 48.1 MG/DL (40.0-60.0); LDL CHOLESTEROL 104 MG/DL (0-99)
[2016-08-07] MEDS ORDERED: HEPARIN-NS/PF INJ 500 ML ONE (18:16)
[2016-08-07] MEDS ORDERED: VERAPAMIL HCL 5 MG/2 ML VIAL ONE (18:17)
[2016-08-07] MEDS ORDERED: MIDAZOLAM HCL 2 MG/2 ML VIAL ONE ×2 (18:17→18:35)
[2016-08-07] MEDS ORDERED: HEPARIN SODIUM - IV 10,000 UNITS/10 ML VIAL ONE (18:17)
[2016-08-07] MEDS ORDERED: NITROGLYCERIN INJ 5 ML ONE (18:18)
--- NOTE | 2016-08-07 18:43 | MB ---
cc: SERAFIN VO DATE OF CONSULTATION: 08/07/2016 DATE OF 12/14/1972 REASON FOR CONSULTATION Abnormal stress test. HISTORY OF PRESENT ILLNESS 45-year-old male with cardiac risk factors that include hypertension, hyperlipidemia, obesity and a strong family history of coronary artery disease that was admitted to [facility] with elevated blood pressures and complains of chest pain. The patient reports atypical symptoms of chest discomfort. He describes the pain as discomfort in the middle of the chest without any radiation or relief or any exacerbating or relieving factors. He denies fevers, chills, nausea, vomiting, diarrhea, palpitations, syncope, PND, or leg edema. He ruled out by cardiac markers with three sets of troponins less than 0.02. MPI performed shows a small reversible perfusion defect in the anterolateral wall for which Cardiology has been consulted for further recommendations and possible left heart cath. REVIEW OF SYSTEMS Negative except for what is mentioned in HPI. PAST MEDICAL HISTORY 1. Hypertension. 2. Diabetes. 3. Anxiety. 4. Obesity. PAST SURGICAL HISTORY Carpal tunnel syndrome. CARDIAC HOME MEDICATIONS 1. Clonidine 0.3 mg p.o. t.i.d. 2. Losartan 100 mg p.o. daily. 3. Norvasc 5 mg p.o. daily. 4. Atenolol 50 mg p.o. b.i.d. ALLERGIES NO KNOWN DRUG ALLERGIES. FAMILY HISTORY Father had a quadruple bypass. Mother has hypertension. SOCIAL HISTORY He is . He drinks socially. He says he quit smoking 10 years ago and uses marijuana. PHYSICAL EXAMINATION VITAL SIGNS: Temperature 97, respiratory rate 18, pulse 73, blood pressure 110/ 100. GENERAL: He is awake, alert and oriented x3, in no acute distress. NECK: No JVD. No carotid bruits. CARDIOVASCULAR: Regular, rate and rhythm. No murmurs, rubs or gallops. LUNGS: Clear to auscultation bilaterally. No rhonchi, no wheezes, no rales. ABDOMEN: Obese. Positive bowel sounds. Soft, nontender, nondistended. EXTREMITIES: No cyanosis or edema. Pulses throughout. LABORATORY DATA CBC: Hemoglobin of 14, hematocrit of 42, platelet count 268. INR 0.9. Electrolytes: Sodium 142, potassium 3.9, BUN 13, creatinine 1.1. Troponin less than 0.02 x3. IMAGING Chest x-ray: No acute cardiopulmonary process. MPI showed reversible defect in the anterior lateral wall. EKG: Sinus rhythm. ASSESSMENT AND PLAN 45-year-old male with cardiac risk factors that include hypertension, diabetes, obesity that presented to the emergency department with severe high blood pressure and complaints of chest pain. He ruled out by cardiac enzymes however a myocardial perfusion study showing a reversible defect in the anterolateral wall. He remains afebrile and hemodynamically stable, currently chest pain free. Given cardiac risk factors presentation and positive nuclear stress, I understand is reasonable to perform a left heart catheterization to assess CAD. The risks and benefits of left heart cath/PCI including but not limited to bleeding, infection, neurovascular trauma, acute kidney injury, stroke, emergent bypass surgery, and have been explained to the patient. The patient understands the risks and he is willing to proceed. RECOMMENDATIONS 1. Keep him n.p.o. for left heart cath, possible PCI today. 2. Continue aggressive medical management for his coronary artery disease. Thank you for the opportunity to take part in the care of this patient. Further therapy to be determined by the results of the left heart cath. MD ISAAC Pineda/DENISE /3:51 PM /6:12 PM KAVON
--- NOTE | 2016-08-07 19:03 | CATHPROC ---
Testif HIS Report Study Information Study Number Admission Scheduled Start Study Start [id number] Aug 06 2016 2:23PM 08/07/2016 Aug 07 2016 5:55PM Study Type [place] [facility] Left Heart Cath Cardiac Catheterization Admit Source Facility Department Transfer in from another acute care [facility] - Sanitation Worker Physician and Clinical Staff Initial Asif Santillan Time Clock Repairer Marisol Doyle,RN Recorder Karissa Mccain,OPERATIONS RESEARCH DIRECTOR TECH2 Scrub Klarissa Astudillo,RT(R) TECH2 Procedures Performed Procedure Location (Site) Vessel Name Coronary Angiograms LCA Left Coronary Coronary Angiograms RCA Right Coronary L Heart Cath LV Gram-hand inj. LV LV Ventricle Equipment Time Principal Developer Description Size Mfg Part Number Used/Scraped TRANSDUCER, TRUWAVE [id number] 18:00 Boqii * Used W/STOCKCOCK *[id number] [id number] *[id number] [id number] *[id number] [id number] *[id number] 18:00 Retrieve PACK, CCL CUSTOM * Used *[id number] 18:00 Retrieve SUPPORT, ARTERIAL ADULT [id number] Used BAND, RADIAL COMPRESSION TR [id number] 18:46 [employer] MEDICAL 29CM Used LARGE 29 *[id number] 18:00 [employer] MEDICAL WIRE, 3MMJ .035 180CM 180CM Used *[id number] 18:00 NAMIC MANIFOLD, 4 PORT * Used *[id number] 18:00 NYCOMED OMNIPAQUE, 350 MG, 150ML 150ML [id number] Used [id number] 18:00 [employer] [employer] BL[employer]ET,WARM AIR CCL * Used *[id number] SHEATH, FR6 TRANSRADIAL 18:00 TERAccuVein FR 6 RM*[id number] Used SLENDER 10CM History: Current Medications Medication Dosage/Unit Route Frequency Last Date/Time Taken Beta Noemi History: Allergies Allergy Reaction No Known Allergies History: Risk Factors Family History of Hypertension Dyslipidemia Previous PA Previous Heart Failure Premature CAD Yes No Yes No No Prior Valve Prior PCI Prior CABG Surgery No No No Cerebrovascular Peripheral Artery Chronic Lung On Dialysis Diabetes Diabetes Therapy Disease Disease Disease No No No Yes Yes Oral History: Symptoms/Diagnosis Selection Items Chest pain History: Stress Tests Stress or Imaging Studies Performed Yes Standard Exercise Stress Test No Stress Echo No Stress Test SPECT Stress Test SPECT Result Stress Test SPECT Ischemia Risk/Extent Yes Positive Low Stress Test CMR No Cardiac CTA Coronary Calcium Score No No History: Other Disease Selection Items COPD History: Other Current Smoker Method Quit Packs a Day Years Used Pack Years No Cigarettes 10 Years Ago 1 22 Labs Hgb (g/dl) Hct (%) WBC (l/cumm) Platelets (thousands) 11.60-17.00 35.00-51.00 4.00-11.00 150.00-450.00 14.6 42.2 8.2 268 Glucose (mg/dl) BUN (mg/dl) Creatinine (mg/dl) BUN:Creatinine (1:x) 74.00-106.00 7.00-18.00 0.50-1.30 10.00-20.00 92 13 1.1 11.8 Na (meq/l) K (meq/l) 136.00-145.00 3.50-5.10 142 3.9 INR (PTT:PT) 0.90-1.10 0.9 Troponin I (ng/ml) CPK-MB (ng/ML) 0.02-0.05 0.50-3.60 0.02 Not Drawn Medication Medication Total Dose (Bolus/Oral) Medication Total Dosage/Unit 1% XYLOCAINE 2 mL FENTANYL 100 mcg VERSED 4 mg Medications (Bolus/Oral) Medication Time Given Dosage/Unit Administered By Reason VERSED 08/07/2016 6:33:50 PM 2 mg Marisol Doyle 2 mg VERSED given in lab by Marisol Doyle RN in Right Antecubital via Peripheral IV. FENTANYL 08/07/2016 6:34:57 PM 50 mcg Marisol Doyle 50 mcg FENTANYL given in lab by Marisol Doyle RN in Right Antecubital via Peripheral IV. 1% XYLOCAINE 08/07/2016 6:35:25 PM 2 mL [place] 2 mL 1% XYLOCAINE given in lab by Asif Ivan in Right Radial via Subcutaneous. VERSED 08/07/2016 6:36:24 PM 1 mg Marisol Doyle 1 mg VERSED given in lab by Marisol oDyle RN in Right Antecubital via Peripheral IV. FENTANYL 08/07/2016 6:37:42 PM 25 mcg Marisol Doyle 25 mcg FENTANYL given in lab by Marisol Doyle RN in Right Antecubital via Peripheral IV. VERSED 08/07/2016 6:40:52 PM 1 mg Marisol Doyle 1 mg VERSED given in lab by Marisol Doyle RN in Right Antecubital via Peripheral IV. FENTANYL 08/07/2016 6:42:03 PM 25 mcg Marisol Doyle 25 mcg FENTANYL given in lab by Marisol Doyle RN in Right Antecubital via Peripheral IV. Medication (Drip) Medication Time Given Dosage/Unit Concentration/Unit Diluent (ml) Solution IV Solutions 08/07/2016 6:09:52 PM 0 mL (IV) 500 NaCl .9 IV Solutions given in lab by Marisol Doyle RN in Right Antecubital via Peripheral IV. Pump/Drip Daniel w = 20 ml/hr using NaCl .9. Initial Case Assessment Cardiovascular HR Rhythm NIBP Chest Pain 73 reg 196/109 0 Edema Present Skin color Skin None Normal Warm Dry Circulatory - Right Pulses Dorsalis Pedis Femoral Radial 2 2 2 Scale (0,1,2,3,4,d) Circulatory - Left Pulses Dorsalis Pedis Femoral Radial 2 Scale (0,1,2,3,4,d) Circulatory - Lower Extremities Color Lower Right Color Lower Left Normal Normal Neurological State Oriented to time-place- Alert Moves all extremities person Respiration - General Respiration Rate SpO2 (%) (B/min) 20 95 Final Case Assessment Cardiovascular HR Rhythm NIBP Chest Pain 75 reg 160/93 0 Edema Present Skin color Skin None Normal Warm Dry Circulatory - Right Pulses Dorsalis Pedis Femoral Radial 2 2 2 Scale (0,1,2,3,4,d) Circulatory - Left Pulses Dorsalis Pedis Femoral Radial 2 Scale (0,1,2,3,4,d) Circulatory - Lower Extremities Color Lower Right Color Lower Left Normal Normal Neurological State Oriented to time-place- Alert Moves all extremities person Respiration - General Respiration Rate SpO2 (%) (B/min) 20 97 Chronological Log Time Study Chronological Log 18:09:33 Patient arrived via Bed. 18:09:34 Patient Name, D.O.B, / Armband Verified By R.N. 18:09:35 Consent signed by the physician and the patient and verified by the Sanitation Worker staff. 18:09:37 Pre-op and post- op instructions given; patient acknowledges understanding of instructions. 18:09:37 Verbal Stimulation=2 Physical Stimulation=2 Airway=2 Respiration=2 TOTAL=8. (0=absent, 1=li mited, 2=present) 18:09:39 Presedation assessment performed by Sanitation Worker RN. 18:09:48 Skin Breakdown- none per pt 18:09:49 Patient Warmer Placed on the Table. 18:09:51 Priscila Prominences Protected 18:09:51 A # 20 IV was noted in the Antecubital (right). Grade = 0 IV Solutions given in lab by Marisol Doyle, JAZZY in Right Antecubital via Peripheral IV. Pump/Dr ip Flow = 20 ml/hr using 18:09:52 NaCl .9. 18:09:54 History and physical on the chart or being dictated. Assessment: Initial Case, HR=73 BPM, Rhythm=reg, KJVK=124/109 mmhg, Chest Pain=0, Edema=None, Color=Normal, Skin = Warm, Dry Right Pulses: Basilio Ped=2, Femoral=2, Radial=2 Left Pulses: Basilio Ped=2 18:09:58 Lower Right Extremities: Color=Normal Lower Left Extremities: Color=Normal Neurological: State=Alert, Ox3, [place] Respiration: Resp=20 B/min, SpO2=95 % Vitals capture started with the following parameters, Patient=Adult, Interval=5 min, Initial Pr ubtoeq=390 mmHg, 18:13:32 Deflation Rate=5 mmHg 18:14:45 HR=69 bpm, ZWUX=029/109 mmhg, SpO2=95.0 %, Pain=0, Evelyn=10, Caceres=2 18:16:17 HR=71 bpm, MWPM=284/124 mmhg, SpO2=95.0 %, Resp=10 B/min, Pain=0, Evelyn=10, Caceres=2 18:18:18 HR=72 bpm, RPFL=244/109 mmhg, SpO2=94.0 %, Resp=21 B/min, Pain=0, Evelyn=10, Caceres=2 18:19:13 Reference ECG taken 18:20:19 HR=71 bpm, DLNY=296/114 mmhg, SpO2=95.0 %, Resp=22 B/min, Pain=0, Evelyn=10, Caceres=2 18:22:17 Allens test performed on the right radial and ulnar artery. 18:22:20 HR=71 bpm, CFKK=628/108 mmhg, Resp=22 B/min, Pain=0, Evelyn=10, Caceres=2 18:23:00 Right groin and right radial prepped with 2% chlorhexidine, and with a 3 min. waiting time. 18:24:17 HR=70 bpm, WLJP=149/111 mmhg, SpO2=95.0 %, Resp=19 B/min, Pain=0, Evelyn=10, Caceres=2 18:26:17 HR=73 bpm, QDXM=125/113 mmhg, SpO2=96.0 %, Resp=18 B/min, Pain=0, Evelyn=10, Caceres=2 18:26:42 MD paged 18:28:01 Pressure channel 1 zeroed. 18:28:18 HR=69 bpm, RYBB=808/107 mmhg, SpO2=95.0 %, Resp=21 B/min, Pain=0, Evelyn=10, Caceres=2 18:30:17 HR=71 bpm, JTMW=706/108 mmhg, SpO2=96.0 %, Resp=19 B/min, Pain=0, Evelyn=10, Caceres=2 18:30:58 MD arrived. 18:32:18 HR=68 bpm, NFDD=401/105 mmhg, SpO2=97.0 %, Resp=20 B/min, Pain=0, Evelyn=10, Caceres=2 Time Out. Correct patient, correct procedure,correct physician, power injector not loaded with contrast with surgical 18:33:29 team present. Time Out Concurred by MD, individual staff in procedure 18:33:50 2 mg VERSED given in lab by Marisol Doyle, RN in Right Antecubital via Peripheral IV. 18:34:17 HR=72 bpm, TNEE=970/112 mmhg, SpO2=98.0 %, Resp=13 B/min, Pain=0, Evelyn=10, Caceres=2 18:34:49 Case Start 18:34:57 50 mcg FENTANYL given in lab by Marisol Doyle, RN in Right Antecubital via Peripheral IV. 18:35:25 2 mL 1% XYLOCAINE given in lab by Asif Ivan in Right Radial via Subcutaneous. 18:36:17 HR=74 bpm, PEHP=446/102 mmhg, SpO2=96.0 %, Resp=14 B/min, Pain=0, Evelyn=10, Caceres=2 18:36:24 1 mg VERSED given in lab by Marisol Doyle RN in Right Antecubital via Peripheral IV. 18:36:39 Access site was right Radial Artery. A SHEATH, FR6 TRANSRADIAL SLENDER 10CM FR 6 was advanced into the Antecubital (right) using the Percutaneous 18:37:00 technique. A JL 3.5 INFINITI CATHETER FR 5 was advanced over a wire. OMNIPAQUE, 350 MG, 150ML 150ML was us ed for 18:37:14 injections. 18:37:42 25 mcg FENTANYL given in lab by Marisol Doyle RN in Right Antecubital via Peripheral IV. Recorded Pressure: Ao, HR=81, Condition=Condition 1 18:37:48 (Aorta) Ao 144/93/117 18:38:02 The LCA was injected and visualized at various angles. OMNIPAQUE, 350 MG, 150ML 150ML used . 18:38:12 HR=78 bpm, YYAB=829/97 mmhg, SpO2=94.0 %, Resp=15 B/min, Pain=0, Evelyn=10, Caceres=2 After removing the current catheter a JR 4.0 INFINITI CATHETER FR 6 was advanced over a WIRE, 3 MMJ .035 180CM 18:39:23 180CM. 18:40:13 HR=74 bpm, IXOS=659/95 mmhg, SpO2=93.0 %, Resp=17 B/min, Pain=0, Evelyn=10, Caceres=2 18:40:52 1 mg VERSED given in lab by Marisol Doyle, JAZZY in Right Antecubital via Peripheral IV. 18:41:48 The RCA was injected and visualized at various angles. OMNIPAQUE, 350 MG, 150ML 150ML used . 18:42:03 25 mcg FENTANYL given in lab by Marisol Doyle RN in Right Antecubital via Peripheral IV. Recorded Pressure: LV, HR=79, Condition=Condition 1 18:42:12 (Left Ventricle) LV 152/7/20 18:42:16 HR=74 bpm, MZVV=944/100 mmhg, SpO2=92.0 %, Resp=18 B/min, Pain=0, Evelyn=10, Caceres=2 18:43:06 The LV was manually injected with 10 cc's and visualized. OMNIPAQUE, 350 MG, 150ML 150ML us ed. Recorded Pressure: LV, Ao, HR=85, Condition=Condition 1 18:43:41 (Left Ventricle) LV 143/13/31, (Aorta) Ao 152/92/119 18:44:13 HR=76 bpm, EUKQ=130/93 mmhg, SpO2=95.0 %, Resp=10 B/min, Pain=0, Evelyn=10, Caceres=2 18:44:35 Catheter was removed 18:45:36 Case End 18:45:53 Catheter(s) removed without difficulty Radial Compression Device Used. 10 mLs of air placed in BAND, RADIAL COMPRESSION TR LARGE 29 29 CM. Affected 18:46:00 hand 95 % O2 saturation. 18:46:09 HR=74 bpm, RHBZ=767/98 mmhg, SpO2=95.0 %, Resp=15 B/min, Pain=0, Evelyn=10, Caceres=2 18:46:21 No case complications noted. 18:46:22 Cine recording checked. 18:46:29 Bedside Report will be given. 18:46:31 Contrast Scanned 18:46:36 A Left Heart Cath was performed. 18:48:12 HR=74 bpm, UQFS=809/93 mmhg, SpO2=94.0 %, Resp=13 B/min, Pain=0, Evelyn=10, Caceres=2 Assessment: Final Case, HR=75 BPM, Rhythm=reg, LJXH=900/93 mmhg, Chest Pain=0, Edema=None, [place] r=Normal, Skin = Warm, Dry Right Pulses: Basilio Ped=2, Femoral=2, Radial=2 Left Pulses: Basilio Ped=2 18:48:48 Lower Right Extremities: Color=Normal Lower Left Extremities: Color=Normal Neurological: State=Alert, Ox3, [place] Respiration: Resp=20 B/min, SpO2=97 % 18:49:19 Vitals capture stopped. End Study - Contrast Media Used In Study Contrast Total Opened (mL) Total Used (mL) Total Wasted (mL) Omnipaque 70 70 0 End Study - Maximum Contrast Load Max Contrast Load (mL) 491.7 End Study - Radiation Exposure Fluoro Time (minutes) 3.1 End Study - Patient Disposition Complications Transferred To No Telemetry Bed
--- NOTE | 2016-08-07 20:49 | MA ---
cc: SERAFIN VO DATE 08/07/2016 DATE OF 1970 PROCEDURE PERFORMED 1. Left heart catheterization. 2. selective right and left coronary angiography. 3. Left ventriculogram. INDICATION Atypical chest pain with a positive stress test. APPROACH Right transradial. DESCRIPTION OF PROCEDURE Consent signed. The patient was taken to the cardiac dye lab technician in fasting state. The right groin and wrist were prepped and draped in sterile fashion. Using 1% lidocaine for local anesthesia and a micropuncture kit, a 6-Hebrew sheath was inserted into the right radial artery. Antispasmodic cocktail given. Then selective coronary angiography was performed with a JR-4 and JL-3.5 diagnostic catheters. Angiography was taken in multiple views. The JR-4 diagnostic catheter was introduced into the left ventricle over a wire. This was followed by pressure recordings, left ventriculogram and pullback. The patient tolerated the procedure well without complications. Estimated blood loss less than 30 mL. Total contrast used 2 mL. The right radial access site was closed with a TR band. RESULTS Left ventricle. The left ventricular pressure was 143/13 with an LVEDP of 31. The aortic pressure was 152/92 with a mean of 119. Left ventriculogram revealed a symmetrically italo ventricle with an estimated ejection fraction of 60%. There was no gradient upon pullback from the left ventricle to aorta. ANGIOGRAPHY 1. Left main is long and patent with nonobstructive coronary artery disease. 2. LAD is a wraparound vessel, transapical with minimal luminal irregularities and mild calcifications throughout. Has a 10% lesion in its proximal segment. It has three small diagonals with nonobstructive coronary artery disease. 3. Ramus is a prominent vessel measuring at least 3 mm in the proximal segment. It bifurcates giving off blood flow to the anterolateral aspect of the heart. It has LAMONT III flow and nonobstructive coronary artery disease. 4. 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 This vessel has 10% lesion proximally. It is composed of two OM vessels which are patent with nonobstructive coronary artery disease. 5. The right coronary artery is a dominant vessel giving off the PDA. It is tortuous with nonobstructive CAD and LAMONT III flow. It also has a mid 30% lesion in its mid segment. CONCLUSION 1. Nonobstructive coronary artery disease. 2. 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 3. Elevated LVEDP. 4. Preserved LV systolic function. 5. Severe uncontrolled hypertension. RECOMMENDATIONS; - Admit to [facility] for postop care - Hospitalist to resume care. - Aggressive medical management for coronary artery disease risk factors as well as therapeutic lifestyle changes. MD ISAAC Pineda/KK /6:54 PM /8:37 PM KAVON
[2016-08-07] MEDS: methylPREDNISolone SOD SUCC 40 MG/1 ML VIAL IV PUSH SCH (21:54)
[2016-08-07] MEDS: ALPRAZolam 0.5 MG TAB PO PRN (21:54)
[2016-08-07] MEDS: FAMOTIDINE 20 MG TAB PO SCH (21:54)
--- NOTE | 2016-08-07 23:26 | EKG ---
Date Performed: 08/06/2016 Time Performed: 19:13:12 PTAGE: 45 years EKG: Sinus rhythm WITH FIRST DEGREE AV BLOCK INCOMPLETE RIGHT BUNDLE BRANCH BLOCK NONSPECIFIC T-WAVE ABNORMALITY ABNOR MAL ECG PREVIOUS TRACING : 08/06/2016 16.00 Compared to prior tracing no significant change DOCTOR: Robert Steele Interpretating Date/Time 08/07/2016 23:25:56
--- NOTE | 2016-08-07 23:35 | EKG ---
Date Performed: 08/06/2016 Time Performed: 16:00:05 PTAGE: 45 years EKG: SINUS BRADYCARDIA INCOMPLETE RIGHT BUNDLE BRANCH BLOCK NONSPECIFIC T-WAVE ABNORMALITY BORDE KENNYINE ECG PREVIOUS TRACING : 08/06/2016 12.42 Compared to prior tracing no significant change DOCTOR: Robert Steele Interpretating Date/Time 08/07/2016 23:34:45
--- NOTE | 2016-08-07 23:51 | EKG ---
Date Performed: 08/06/2016 Time Performed: 12:42:23 PTAGE: 45 years EKG: Sinus rhythm INCOMPLETE RIGHT BUNDLE BRANCH BLOCK NONSPECIFIC T-WAVE ABNORMALITY BORDERLINE ECG PREVIOUS TRACING : 03/07/2016 15.25 Compared to prior tracing no significant change DOCTOR: Robert Steele Interpretating Date/Time 08/07/2016 23:50:58
[2016-08-08] VITALS (30 sets, daily range): BP systolic 128–193; BP diastolic 74–119; PULSE 59–88; RESP 18–19; TEMP 97.6–98.6; O2SAT 93–97
[2016-08-08] MEDS: hydrALAZINE HCL 20 MG/ML VIAL IV PUSH PRN ×3 (01:02→16:32)
[2016-08-08] MEDS: ACETAMINOPHEN 500 MG CPLT PO PRN (02:56)
--- NOTE | 2016-08-08 04:17 | PD.CARD.PN ---
Subjective Subjective Remarks no CV complaints Uncontrolled HTN Objective Medications Current Medications Medications (Trade) Dose Ordered Sig/Jamel Route Start Time Stop Time Status Last Admin (NS Flush) 2 ml UNSCH PRN IV FLUSH 08/06/16 14:30 (NS Flush) 2 ml BID IV FLUSH 08/06/16 21:00 08/07/16 21:54 (Tylenol) 500 mg Q4H PRN PO 08/06/16 14:30 08/08/16 02:56 ([place] 7.5-325 Mg) 1 tab Q4H PRN PO 08/06/16 14:30 (Morphine Inj) 2 mg Q4H PRN IV 08/06/16 14:30 (Zofran Inj) 4 mg Q6H PRN IV 08/06/16 14:30 (Nitrostat Sl) 0.4 mg Q5M PRN SL 08/06/16 14:30 (Aspirin) 325 mg DAILY PO 08/07/16 09:00 08/07/16 12:20 (Catapres) 0.1 mg Q6H PRN PO 08/06/16 14:45 08/07/16 21:01 (Cozaar) 100 mg DAILY PO 08/06/16 16:30 08/07/16 12:21 (Protonix) 20 mg DAILY PO 08/06/16 16:30 08/07/16 12:20 (D50w (Vial) Inj) 50 ml UNSCH PRN IV 08/06/16 17:00 (Glucagon Inj) 1 mg UNSCH PRN OTHER 08/06/16 17:00 (Xanax) 0.5 mg Q8H PRN PO 08/07/16 15:00 08/07/16 21:54 (Tenormin) 100 mg BID PO 08/07/16 15:00 08/07/16 21:54 (SoluMEDROL INJ) 40 mg Q8HR IV PUSH 08/07/16 22:00 08/07/16 21:54 (Pepcid) 20 mg BID PO 08/07/16 21:00 08/07/16 21:54 Atorvastatin Calcium 40 mg 40 mg DAILY PO 08/07/16 16:00 (NS 1000 ml Inj) 1,000 ml @ 30 mls/hr Q24H IV 08/07/16 16:00 (Apresoline Inj) 10 mg Q30M PRN IV PUSH 08/08/16 00:30 08/08/16 01:02 (Hydrodiuril) 25 mg DAILY PO 08/08/16 09:00 UNV (Procardia Xl) 30 mg DAILY PO 08/08/16 09:00 UNV Vital Signs / I&O Vital Signs Date Time Temp Pulse Resp B/P Pulse Ox O2 Delivery O2 Flow Rate FiO2 08/08/16 00:00 98.6 63 19 160/119 97 08/07/16 22:00 98.0 68 20 168/108 97 08/07/16 19:19 95 Room Air 08/07/16 15:48 98.2 69 18 186/117 99 08/07/16 14:26 185/80 08/07/16 14:00 97.7 72 18 134/80 95 08/07/16 08:00 61 08/07/16 08:00 98.0 65 17 149/90 96 08/07/16 06:00 165/95 I/O 08/07/16 08/07/16 08/07/16 08/08/16 08/08/16 08/08/16 07:00 15:00 23:00 07:00 15:00 23:00 Intake Total 506 ml 2 ml Balance 506 ml 2 ml Intake Oral 0 ml 0 ml IV Total 506 ml 2 ml # Voids 1 # Bowel Movements 0 Physical Exam GENERAL: Well-nourished, well-developed patient. SKIN: Warm and dry. HEAD: Normocephalic. EYES: No scleral icterus. No injection or drainage. NECK: Supple, trachea midline. No JVD or lymphadenopathy. CARDIOVASCULAR: Regular rate and rhythm without murmurs, gallops, or rubs. RESPIRATORY: Breath sounds equal bilaterally. No accessory muscle use. GASTROINTESTINAL: Abdomen soft, non-tender, nondistended. EXTREMITIES: No cyanosis, or edema. NEUROLOGICAL: Awake, alert, and oriented x 3. Non-focal. Laboratory Laboratory Tests Test 08/07/16 17:23 Triglycerides Level 118 MG/DL Cholesterol Level 176 MG/DL LDL Cholesterol 104 MG/DL HDL Cholesterol 48.1 MG/DL Cholesterol/HDL Ratio 3.65 RATIO Imaging Last Impressions Myocardial Perfusion Scan Nuc Med 08/07/16 0821 Signed Impressions: Service Date/Time: Sunday, August 07, 2016 09:46 - CONCLUSION: 1. Small region of reversible perfusion defect in the anterolateral wall. 2. No focal wall motion abnormality with EF of 61%%. RISK CATEGORY: 1-Low risk (<1%% annual mortality rate) Олег Dowling MD Chest X-Ray 08/06/16 1228 Signed Impressions: Service Date/Time: Saturday, August 06, 2016 12:33 - CONCLUSION: No acute disease. Magdaleno Nolasco MD Assessment and Plan Problem List: (1) Chest pain Assessment and Plan: Nonobstructive CAD in [facility] Uncontrolled HTN Complaints of headache Recommendations 1. Start HCTZ 25mg PO daily 2. Start Procardia XL 30mg PO daily 3. 2Dechocardiogram Will be available on a PRN basis for any other questions or concerns (2) HTN (hypertension) Problem Qualifiers (1) Chest pain: Qualified Code: R07.9 - Chest pain, unspecified type (2) HTN (hypertension): Qualified Code: I10 - Essential hypertension Asif Ivan MD Aug 08, 2016 04:17
[2016-08-08] MEDS: ACETAMINOPHEN/HYDROcodone 325 MG/7.5 MG TAB PO PRN ×3 (04:36→16:32)
[2016-08-08] MEDS: methylPREDNISolone SOD SUCC 40 MG/1 ML VIAL IV PUSH SCH (06:41)
--- NOTE | 2016-08-08 07:48 | HHI.PR ---
Subjective Remarks no chest pains or shortness of breath complains of headaches, no nausea or vomiting Objective Vitals Vital Signs Date Time Temp Pulse Resp B/P Pulse Ox O2 Delivery O2 Flow Rate FiO2 08/08/16 06:00 66 08/08/16 05:00 66 08/08/16 04:00 72 08/08/16 04:00 98.0 72 19 165/106 97 08/08/16 03:00 74 08/08/16 02:00 70 08/08/16 01:00 64 08/08/16 00:00 98.6 63 19 160/119 97 08/08/16 00:00 64 08/07/16 23:00 68 08/07/16 22:00 68 08/07/16 22:00 98.0 68 20 168/108 97 08/07/16 19:19 95 Room Air 08/07/16 15:48 98.2 69 18 186/117 99 08/07/16 14:26 185/80 08/07/16 14:00 97.7 72 18 134/80 95 08/07/16 08:00 61 08/07/16 08:00 98.0 65 17 149/90 96 I/O 08/07/16 08/07/16 08/07/16 08/08/16 08/08/16 08/08/16 07:00 15:00 23:00 07:00 15:00 23:00 Intake Total 506 ml 2 ml 680 ml Output Total 750 ml Balance 506 ml 2 ml -70 ml Intake Oral 0 ml 0 ml 680 ml IV Total 506 ml 2 ml Output Urine Total 750 ml # Voids 1 # Bowel Movements 0 Result Diagram: 08/06/16 1255 08/06/16 1255 Imaging Last Impressions Myocardial Perfusion Scan Nuc Med 08/07/16 0821 Signed Impressions: Service Date/Time: Sunday, August 07, 2016 09:46 - CONCLUSION: 1. Small region of reversible perfusion defect in the anterolateral wall. 2. No focal wall motion abnormality with EF of 61%%. RISK CATEGORY: 1-Low risk (<1%% annual mortality rate) Олег Dowling MD Chest X-Ray 08/06/16 1228 Signed Impressions: Service Date/Time: Saturday, August 06, 2016 12:33 - CONCLUSION: No acute disease. Magdaleno Nolasco MD Objective Remarks awake and alert, NAD anicteric, no temporal tenderness neck supple, no nuchal rigidity lungs clear, no rales or wheezes regular rhythm abdomen soft, nontender right wrist- no heamtoma LE- no edema Neuro exam- unremarkable Procedures Status post nuclear stress testing. 08/07- cardiac catheterization- non obstructive CAD, good EF A/P Problem List: (1) Chest pain ICD Code: R07.9 Status: Acute (2) Dyspnea ICD Code: R06.00 Status: Acute (3) HTN (hypertension) ICD Code: I10 Status: Acute (4) Marijuana abuse ICD Code: F12.10 Status: Acute Assessment and Plan 45 years old male Chest pain- non obstructive CAD S/P cardiac catheterization- 08/07 HYpertension uncontrolled -continue regimen- Atenolol.. ASA - Added HCTZ + Procardia -risk factor mofifications- - statins DM type 2 - hemoglobin A1C- pending -on Metformin as OP- held post cardiac cath - good readings here - dietitian consult for counselling HAD/underlying COPD-or RLD- obese - no wheezing on exam today = change to po short course Prednisone = check PFTs - start MdIs Obesity - BMI- 37 advise on weight reduction DC planning- once BP better controlled Problem Qualifiers (1) Chest pain: Qualified Code: R07.9 - Chest pain, unspecified type (2) HTN (hypertension): Qualified Code: I10 - Essential hypertension Anne Marie Riggs MD Aug 08, 2016 07:48
[2016-08-08] MEDS ORDERED: ALBUTEROL SULFATE 90 MCG/ACT HFA 8 GM INHALER INH SCH (08:00)
--- NOTE | 2016-08-08 08:16 | EKG ---
Date Performed: 08/08/2016 Time Performed: 06:23:34 PTAGE: 45 years EKG: Sinus rhythm rSr'(V1) - probable normal variant Normal ECG PREVIOUS TRACING : 08/06/2016 19.13 DOCTOR: Asif Ivan Interpretating Date/Time 08/08/2016 08:12:09
[2016-08-08] MEDS: ATORVASTATIN 40 MG TAB PO SCH (08:53)
[2016-08-08] MEDS: FAMOTIDINE 20 MG TAB PO SCH ×2 (08:57→22:22)
[2016-08-08] MEDS: HYDROCHLOROTHIAZIDE 25 MG TAB PO SCH (08:57)
[2016-08-08] MEDS: NIFEdipine 30 MG SUSTAINED RELEASE TAB PO SCH (08:57)
[2016-08-08] MEDS: LOSARTAN 50 MG TAB PO SCH (08:57)
[2016-08-08] MEDS: predniSONE 20 MG TAB PO SCH ×2 (08:57→22:21)
[2016-08-08] MEDS: PANTOPRAZOLE SOD 20 MG DELAYED RELEASE TAB PO SCH (08:57)
[2016-08-08] MEDS: ASPIRIN 325 MG TAB PO SCH (08:57)
[2016-08-08] MEDS: ATENOLOL 50 MG TAB PO SCH ×2 (08:57→22:22)
[2016-08-08] MEDS: SODIUM CHLORIDE 0.9% FLUSH 10 ML FLUSH IV FLUSH SCH ×2 (08:58→22:21)
[2016-08-08] MEDS: ALBUTEROL SULFATE 90 MCG/ACT HFA 18 GM INHALER INH SCH ×3 (11:11→22:42)
[2016-08-08] MEDS: TIOTROPIUM BROMIDE 18 MCG INH INH SCH (11:11)
[2016-08-08] MEDS: ALPRAZolam 0.5 MG TAB PO PRN (11:17)
[2016-08-08] MEDS: cloNIDine HCL 0.1 MG TAB PO PRN (11:17)
[2016-08-08] MEDS: INSULIN ASPART SUPPLEMENTAL SCALE SQ SCH ×3 (11:23→21:00)
--- NOTE | 2016-08-08 15:51 | ECHRPT ---
Indication: SOB CONCLUSIONS The left ventricular systolic function is normal with an estimated ejection fraction in the range of 60-65%. Moderate concentric left ventricular hypertrophy. The left atrial size is mildly dilated. BP: 149 / 90 HR: 65 Rhythm: MEASUREMENTS (Male / Female) Normal Values Technical Quality:Fair 2D ECHO LV Diastolic Diameter PLAX 4.9 cm 4.2 - 5.9 / 3.9 - 5.3 cm LV Systolic Diameter PLAX 3.5 cm IVS Diastolic Thickness 1.9 cm 0.6 - 1.0 / 0.6 - 0.9 cm LVPW Diastolic Thickness 1.3 cm 0.6 - 1.0 / 0.6 - 0.9 cm LV Relative Wall Thickness 0.7 RV Internal Dim ED PLAX 3.0 cm M-MODE Aortic Root Diameter MM 3.5 cm LA Systolic Diameter MM 4.8 cm LA Ao Ratio MM 1.4 AV Cusp Separation MM 2.3 cm DOPPLER Mitral E Point Velocity 52.3 cm/s Mitral A Point Velocity 55.8 cm/s Mitral E to A Ratio 0.9 LV E' Lateral Velocity 7.2 cm/s Mitral E to LV E' Lateral Ratio 7.3 FINDINGS LEFT VENTRICLE Normal left ventricular size. The left ventricular systolic function is normal with an estimated ejection fraction in the range of 60-65%. Moderate concentric left ventricular hypertrophy. RIGHT VENTRICLE Normal right ventricular size and systolic function. LEFT ATRIUM The left atrial size is mildly dilated. RIGHT ATRIUM The right atrium is not well visualized. ATRIAL SEPTUM The interatrial septum not well visualized. AORTA The aortic root and proximal ascending aorta are not well visualized. MITRAL VALVE Structurally normal mitral valve. No mitral valve stenosis or regurgitation. AORTIC VALVE Trileaflet aortic valve. No aortic valve stenosis or regurgitation. TRICUSPID VALVE Structurally normal tricuspid valve. No tricuspid valve stenosis or regurgitation. PULMONARY VALVE No pulmonary valve regurgitation or stenosis. VESSELS The inferior vena cava is normal in size. PERICARDIUM No pericardial effusion. Decue Koch DO (Electronically Signed) Final Date:08 August 2016 15:50
[2016-08-08 16:03] LABS: HEMOGLOBIN A1a 0.8 %; HEMOGLOBIN A1b 2.1 %; HEMOGLOBIN Ao 84.9 %
[2016-08-08] MEDS ORDERED: cloNIDine HCL 0.3 MG TAB PO ONE (18:45)
[2016-08-09] VITALS (26 sets, daily range): BP systolic 100–157; BP diastolic 57–100; PULSE 46–71; RESP 16–20; TEMP 97.8–98.5; O2SAT 93–98
[2016-08-09] MEDS: ALBUTEROL SULFATE 90 MCG/ACT HFA 18 GM INHALER INH SCH ×4 (04:16→22:43)
[2016-08-09] MEDS: INSULIN ASPART SUPPLEMENTAL SCALE SQ SCH ×4 (05:09→20:21)
[2016-08-09] MEDS: ACETAMINOPHEN/HYDROcodone 325 MG/7.5 MG TAB PO PRN ×3 (05:13→16:49)
[2016-08-09] MEDS: SODIUM CHLORIDE 0.9% FLUSH 10 ML FLUSH IV FLUSH SCH ×2 (09:00→20:16)
[2016-08-09] MEDS: cloNIDine HCL 0.3 MG TAB PO SCH ×2 (09:19→13:00)
[2016-08-09] MEDS: TIOTROPIUM BROMIDE 18 MCG INH INH SCH (09:19)
[2016-08-09] MEDS: ATENOLOL 50 MG TAB PO SCH ×2 (09:19→20:17)
[2016-08-09] MEDS: ATORVASTATIN 40 MG TAB PO SCH (09:20)
[2016-08-09] MEDS: PANTOPRAZOLE SOD 20 MG DELAYED RELEASE TAB PO SCH (09:20)
[2016-08-09] MEDS: predniSONE 20 MG TAB PO SCH ×2 (09:21→20:17)
[2016-08-09] MEDS: NIFEdipine 30 MG SUSTAINED RELEASE TAB PO SCH (09:21)
[2016-08-09] MEDS: FAMOTIDINE 20 MG TAB PO SCH ×2 (09:21→20:16)
[2016-08-09] MEDS: HYDROCHLOROTHIAZIDE 25 MG TAB PO SCH (09:21)
[2016-08-09] MEDS: LOSARTAN 50 MG TAB PO SCH (09:21)
[2016-08-09] MEDS: ASPIRIN 325 MG TAB PO SCH (09:22)
--- NOTE | 2016-08-09 15:36 | HHI.PR ---
Subjective Remarks discussed with him medications- added complains of left sided headache when BPs elevated no nausea or vomiting d/w him regimen added- was on clonidine 0.3 mg po tid - continue at a lower dose to prevent rebound since CCB added Objective Vitals Vital Signs Date Time Temp Pulse Resp B/P Pulse Ox O2 Delivery O2 Flow Rate FiO2 08/09/16 14:15 70 08/09/16 13:15 100/57 08/09/16 13:09 46 08/09/16 12:00 48 08/09/16 11:15 98.2 53 16 115/70 94 08/09/16 11:00 51 08/09/16 10:00 58 08/09/16 09:00 66 08/09/16 08:00 60 08/09/16 07:30 97.9 54 16 142/86 98 08/09/16 07:00 54 08/09/16 06:00 64 08/09/16 05:08 98.4 52 18 130/85 96 08/09/16 05:06 52 08/09/16 01:00 65 08/09/16 00:30 97.8 65 18 113/74 95 08/09/16 00:00 65 08/08/16 23:00 59 08/08/16 23:00 18 08/08/16 22:00 75 08/08/16 20:00 72 08/08/16 19:47 72 08/08/16 19:45 98.4 72 18 128/74 93 08/08/16 18:53 133/79 08/08/16 18:24 88 08/08/16 17:02 85 08/08/16 16:24 172/98 08/08/16 16:05 76 I/O 08/08/16 08/08/16 08/08/16 08/09/16 08/09/16 08/09/16 07:00 15:00 23:00 07:00 15:00 23:00 Intake Total 680 ml 720 ml 360 ml Output Total 750 ml 900 ml 600 ml Balance -70 ml -180 ml -240 ml Intake Oral 680 ml 720 ml 360 ml Output Urine Total 750 ml 900 ml 600 ml # Bowel Movements 0 0 Result Diagram: 08/06/16 1255 08/06/16 1255 Objective Remarks awake and alert, NAD anicteric, no temporal tenderness neck supple, no nuchal rigidity lungs clear, no rales or wheezes regular rhythm abdomen soft, nontender right wrist- no hematoma LE- no edema Neuro exam- unremarkable Procedures Status post nuclear stress testing. 08/07- cardiac catheterization- non obstructive CAD, good EF A/P Problem List: (1) Chest pain ICD Code: R07.9 Status: Acute (2) Dyspnea ICD Code: R06.00 Status: Acute (3) HTN (hypertension) ICD Code: I10 Status: Acute (4) Marijuana abuse ICD Code: F12.10 Status: Acute Assessment and Plan 45 years old male Chest pain- non obstructive CAD S/P cardiac catheterization- 08/07 HYpertension uncontrolled- better readings SBPs 100 -continue regimen- Atenolol.. ASA - Added HCTZ + Procardia - clonidine- decrease to 0.1 mg po bid -risk factor mofifications- - statins DM type 2 - hemoglobin A1C- 5.6 -on Metformin as OP- held post cardiac cath- restart in am- check renal functions first - good readings here - dietitian consult for counselling HAD/underlying COPD-or RLD- obese - no wheezing on exam =short course Prednisone - MdIs Obesity - BMI- 37 advise on weight reduction DC planning- once BP better controlled Problem Qualifiers (1) Chest pain: Qualified Code: R07.9 - Chest pain, unspecified type (2) HTN (hypertension): Qualified Code: I10 - Essential hypertension Anne Marie Riggs MD Aug 09, 2016 15:36
[2016-08-09] MEDS ORDERED: cloNIDine HCL 0.3 MG TAB PO SCH (18:00)
[2016-08-09 18:36] LABS: BICARBONATE 26.7 MEQ/L (21.0-32.0); POTASSIUM 3.6 MEQ/L (3.5-5.1)
[2016-08-09] MEDS: SODIUM CHLOR 0.9% 1000 ML INJ 1,000 ML IV SCH (20:15)
[2016-08-09] MEDS: cloNIDine HCL 0.1 MG TAB PO SCH (20:16)
[2016-08-09] MEDS: ALPRAZolam 0.5 MG TAB PO PRN (22:42)
[2016-08-10] VITALS (15 sets, daily range): BP systolic 117–144; BP diastolic 77–93; PULSE 45–65; RESP 18–20; TEMP 97.6–97.9; O2SAT 96–98
[2016-08-10] MEDS: ALBUTEROL SULFATE 90 MCG/ACT HFA 18 GM INHALER INH SCH ×2 (06:10→12:05)
[2016-08-10] MEDS: INSULIN ASPART SUPPLEMENTAL SCALE SQ SCH ×2 (06:12→10:48)
[2016-08-10] MEDS: FAMOTIDINE 20 MG TAB PO SCH (08:34)
[2016-08-10] MEDS: LOSARTAN 50 MG TAB PO SCH (08:34)
[2016-08-10] MEDS: cloNIDine HCL 0.1 MG TAB PO SCH (08:34)
[2016-08-10] MEDS: NIFEdipine 30 MG SUSTAINED RELEASE TAB PO SCH (08:34)
[2016-08-10] MEDS: ATENOLOL 50 MG TAB PO SCH (08:34)
[2016-08-10] MEDS: HYDROCHLOROTHIAZIDE 25 MG TAB PO SCH (08:34)
[2016-08-10] MEDS: ATORVASTATIN 40 MG TAB PO SCH (08:34)
[2016-08-10] MEDS: PANTOPRAZOLE SOD 20 MG DELAYED RELEASE TAB PO SCH (08:35)
[2016-08-10] MEDS: SODIUM CHLORIDE 0.9% FLUSH 10 ML FLUSH IV FLUSH SCH (08:35)
[2016-08-10] MEDS: ASPIRIN 325 MG TAB PO SCH (08:35)
[2016-08-10] MEDS: TIOTROPIUM BROMIDE 18 MCG INH INH SCH (08:36)
[2016-08-10] MEDS: ALPRAZolam 0.5 MG TAB PO PRN (10:45)
[2016-08-10] MEDS: SODIUM CHLOR 0.9% 1000 ML INJ 1,000 ML IV SCH (11:16)
--- NOTE | 2016-08-10 13:32 | HHI.PR ---
Subjective Remarks feeling better reviewed BP- overall improving Objective Vitals Vital Signs Date Time Temp Pulse Resp B/P Pulse Ox O2 Delivery O2 Flow Rate FiO2 08/10/16 13:00 63 08/10/16 12:00 55 08/10/16 11:00 61 08/10/16 11:00 97.9 55 20 144/92 96 08/10/16 10:00 62 08/10/16 09:00 64 08/10/16 08:00 48 08/10/16 07:00 46 08/10/16 07:00 97.6 50 18 143/93 96 08/10/16 06:00 48 08/10/16 05:00 45 08/10/16 04:00 57 08/10/16 03:00 97.9 57 18 117/77 98 08/10/16 03:00 52 08/10/16 02:08 53 08/10/16 01:00 65 08/10/16 00:00 58 08/09/16 23:00 98.3 60 20 123/82 95 08/09/16 23:00 62 08/09/16 22:00 60 08/09/16 21:00 62 08/09/16 20:00 64 08/09/16 19:00 66 08/09/16 19:00 98.3 65 20 157/100 93 08/09/16 18:36 64 08/09/16 17:41 71 08/09/16 16:00 66 08/09/16 15:00 66 08/09/16 15:00 98.5 67 19 110/73 96 08/09/16 14:15 70 I/O 08/09/16 08/09/16 08/09/16 08/10/16 08/10/16 08/10/16 07:00 15:00 23:00 07:00 15:00 23:00 Intake Total 360 ml 720 ml 1088 ml Output Total 600 ml 700 ml 500 ml Balance -240 ml 20 ml 588 ml Intake Oral 360 ml 720 ml 480 ml IV Total 608 ml Output Urine Total 600 ml 700 ml 500 ml # Voids 1 # Bowel Movements 0 Result Diagram: 08/06/16 1255 08/09/16 1701 Objective Remarks awake and alert, NAD anicteric, no temporal tenderness neck supple, no nuchal rigidity lungs clear, no rales or wheezes regular rhythm abdomen soft, nontender right wrist- no hematoma LE- no edema Neuro exam- unremarkable Procedures Status post nuclear stress testing. 08/07- cardiac catheterization- non obstructive CAD, good EF A/P Problem List: (1) Chest pain ICD Code: R07.9 Status: Acute (2) Dyspnea ICD Code: R06.00 Status: Acute (3) HTN (hypertension) ICD Code: I10 Status: Acute (4) Marijuana abuse ICD Code: F12.10 Status: Acute Assessment and Plan 45 years old male Chest pain- non obstructive CAD S/P cardiac catheterization- 08/07 HYpertension uncontrolled- better readings SBPs 100 -continue regimen- Atenolol.. ASA - Added HCTZ 08/09 - increase + Procardia- dose increase to 60 mg daily - clonidine- 0.1 mg po bid -risk factor mofifications- - statins DM type 2 - hemoglobin A1C- 5.6 -on Metformin as OP- held post cardiac cath- restart in am- check renal functions first - good readings here - dietitian consult for counselling HAD/underlying COPD-or RLD- obese - no wheezing on exam - Edd Obesity - BMI- 37 advise on weight reduction DC planning-today- will set up with another PCP this week Problem Qualifiers (1) Chest pain: Qualified Code: R07.9 - Chest pain, unspecified type (2) HTN (hypertension): Qualified Code: I10 - Essential hypertension Anne Marie Riggs MD Aug 10, 2016 13:32 Anne Marie Riggs MD Aug 10, 2016 13:32
[2016-08-10 14:07] LABS: BICARBONATE 30.1 MEQ/L (21.0-32.0); POTASSIUM 3.3 MEQ/L (3.5-5.1)
[2016-08-10] MEDS ORDERED: POTASSIUM CHLORIDE 10 MEQ CONTROLLED RELEASE TAB PO ONE (14:15)
[2016-08-10] MEDS ORDERED: SPIRCAP INH (14:57)
[2016-08-10] MEDS ORDERED: ASPI325T PO (14:57)
[2016-08-10] MEDS ORDERED: ATOR40TA16 PO (14:57)
[2016-08-10] MEDS ORDERED: CLON.1 PO (14:57)
[2016-08-10] MEDS ORDERED: VENTAER INH (14:57)
[2016-08-10] MEDS ORDERED: HYDR25TA5 PO (14:57)
[2016-08-10] MEDS ORDERED: NIFE60TA8 PO (14:57)
[2016-08-10] MEDS ORDERED: predniSONE 20 MG TAB PO SCH (15:00)
[2016-08-10] MEDS ORDERED: POTA-163 PO (15:01)
--- NOTE | 2016-08-10 15:03 | HHI.DS ---
Discharge Summary Admission Date Aug 09, 2016 at 15:45 Discharge Date: Aug 10, 2016 Admitting Diagnosis Chest Pain (1) Chest pain ICD Code: R07.9 Diagnosis: Principal (2) Dyspnea ICD Code: R06.00 Diagnosis: Secondary (3) HTN (hypertension) ICD Code: I10 Diagnosis: Principal (4) Marijuana abuse ICD Code: F12.10 Diagnosis: Secondary Procedures Status post nuclear stress testing. 08/07- cardiac catheterization- non obstructive CAD, good EF Brief History - From Admission Written by Jossy Jain PA-C acting as scribe for Dr. Fagan on 08/06/16 at ~1615. 45-year-old male with history of diabetes, hypertension, anxiety, h/o tobacco use presents with complaint of elevated blood pressure and chest pain. Patient's and mother at bedside. His also states he has been short of breath. Patient states he is four different blood pressure medications and he ran out of his amlodipine 7-8 days ago. He states he was trying to take cinnamon supplement instead to try to get off taking so many medications. 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 He states his diastolic blood pressure has been elevated over 100. He states his blood pressure was 178/122 this morning and he took his morning meds and he went to work and rechecked his blood pressure and his diastolic blood pressure was still above 100 so he decided to come to the ED. He states he felt a "stitch" of pain in the left breast which has been constant over the past 48 hours but it does not really concern him. His states he has also been short of breath for the past 2 weeks on exertion and at rest. The patient does smoke marijuana for anxiety relief. Denies any cough. He also states he has IBS and has had 4-6 bowel movements per day. She is primary-care physician is Dr. Kt Islas, but he is self-pay. CBC/BMP: 08/06/16 1255 08/10/16 1329 Significant Findings Laboratory Tests Test 08/07/16 08/09/1617 17:23 17:01 13:29 LDL Cholesterol 104 MG/DL (0-99) Blood Urea Nitrogen 28 MG/DL (7-18) 25 MG/DL (7-18) Creatinine 1.36 MG/DL (0.60-1.30) Estimat Glomerular Filtration 56 ML/MIN (>89) 68 ML/MIN (>89) Rate Random Glucose 193 MG/DL 155 MG/DL (74-106) (74-106) Potassium Level 3.3 MEQ/L (3.5-5.1) PE at Discharge awake and alert, NAD anicteric, no temporal tenderness neck supple, no nuchal rigidity lungs clear, no rales or wheezes regular rhythm abdomen soft, nontender right wrist- no hematoma LE- no edema Neuro exam- unremarkable Pt update on day of discharge awake and alert no distress no chest stephen or shorntess of breath Hospital Course 45 years old male Chest pain- non obstructive CAD S/P cardiac catheterization- 08/07 HYpertension uncontrolled- better readings SBPs 100 -continue regimen- Atenolol.. ASA - Added HCTZ 08/09 - increase + Procardia- dose increase to 60 mg daily - clonidine- 0.1 mg po bid -risk factor mofifications- - statins DM type 2 - hemoglobin A1C- 5.6 -on Metformin as OP- held post cardiac cath- restart in am- check renal functions first - good readings here - dietitian consult for counselling Underlying COPD-or RLD- obese - no wheezing on exam - MdIs Obesity - BMI- 37 advise on weight reduction DC planning-today- will set up with another PCP this week Pt Condition on Discharge: Stable Discharge Disposition: Discharge Home Discharge Time: <= 30 minutes Discharge Instructions DIET: Follow Instructions for: Heart Healthy Diet, Diabetic Diet Speech Therapy-Diet Recommends: Regular Activities you can perform: Weight Bearing as [place] Follow up Referrals: PCP Follow-up - 2-3 Days with PCP New Orders: BASIC METABOLIC PROF - 08/12/16 New Medications: Potassium Chloride ER (Potassium Chloride ER) 20 Meq Tab 20 MEQ PO DAILY Electrolyte Replacement #30 Ref 0 TAB Albuterol 18 GM Inh (Ventolin Hfa 18 GM Inh) 90 Mcg/Act Aer 2 PUFF INH Q6HR COPD Days 30 INHALER Aspirin (Aspirin) 325 Mg Tab 325 MG PO DAILY Chest Pain Days 30 TAB Atorvastatin (Atorvastatin) 40 Mg Tab 40 MG PO DAILY HTN Days 30 TAB Clonidine (Catapres) 0.1 Mg Tab 0.1 MG PO BID HTN Days 30 TAB Hydrochlorothiazide (Hydrochlorothiazide) 25 Mg Tab 25 MG PO DAILY HTN Days 30 TAB Nifedipine ER 24 HR (Nifedipine ER 24 HR) 60 Mg Tab 60 MG PO DAILY HTN Days 30 TAB Tiotropium Inh (Spiriva Handihaler) 18 Mcg Cap 18 MCG INH DAILY COPD Days 30 CAP Continued Medications: Atenolol (Atenolol) 100 Mg Tab 100 MG PO BID Blood Pressure Management #60 Ref 0 TAB Losartan (Losartan) 100 Mg Tab 100 MG PO DAILY Blood Pressure Management #30 Ref 0 TAB Omeprazole Magnesium (Prilosec) 20 Mg Tab 1 TAB PO DAILY Pantoprazole (Protonix) 20 Mg Tab 20 MG PO DAILY Reflux #30 Ref 0 TAB Discontinued Medications: Alprazolam (Xanax) 0.5 Mg Tab 0.5 MG PO Q8H PRN ANXIETY Ref 0 TAB Anne Marie Riggs MD Aug 10, 2016 15:03 Anne Marie Riggs MD Aug 10, 2016 15:03
[2016-08-11] MEDS ORDERED: NIFEdipine 60 MG SUSTAINED RELEASE TAB PO SCH (09:00)
== END 2016-08-10 15:20 | disposition home or self-care (01) | DRG 287 ==
LOC: PHED 13:02 → PHEDA 14:23 → PH3B 15:11 → HDIC 08-07 15:47 → HCIS 08-07 21:09 → OBSVTOIN 08-09 15:45
PROVIDERS: ADMIT Internal Medicine; ATTEND Internal Medicine
PROC: B2111ZZ Fluoroscopy of Multiple Coronary Arteries using Low Osmolar Contrast (ICD-10-PCS; 2016-08-07)
PROC: B2151ZZ Fluoroscopy of Left Heart using Low Osmolar Contrast (ICD-10-PCS; 2016-08-07)
PROC: 4A023N7 Measurement of Cardiac Sampling and Pressure, Left Heart, Percutaneous Approach (ICD-10-PCS; principal; 2016-08-07 18:30)
DX: I10 Essential (primary) hypertension (principal); J44.1 Chronic obstructive pulmonary disease with (acute) exacerbation; Q24.5 Malformation of coronary vessels; I25.84 Coronary atherosclerosis due to calcified coronary lesion; E11.9 Type 2 diabetes mellitus without complications; I45.10 Unspecified right bundle-branch block; I25.10 Atherosclerotic heart disease of native coronary artery without angina pectoris; R51 Headache; E66.9 Obesity, unspecified; F12.10 Cannabis abuse, uncomplicated; F41.9 Anxiety disorder, unspecified; Z68.36 Body mass index [BMI] 36.0-36.9, adult; Z79.84 Long term (current) use of oral hypoglycemic drugs; Z82.49 Family history of ischemic heart disease and other diseases of the circulatory system; Z87.891 Personal history of nicotine dependence
CPT/HCPCS: 71020; 78452; 80048; 80053; 80061; 82550; 82552; 82948; 83036; 84484; 85025; 85610; 85730; 93005; 93017; 93306; 93458; 94060; A9502; C1769; C1893; J0280; J0360; J1644; J1815; J2250; J2405; J2785; J2920; J2930; J3010; J7030; J7512; Q9967